=== PATIENT | male | born 1935 | race Caucasian/White ===

== ENCOUNTER 2020-12-10 01:55 | Inpatient (IN) | payer MEDICARE, MEDICAID, SELFPAY ==
[2020-12-10] VITALS (17 sets, daily range): BP systolic 96–128; BP diastolic 56–78; PULSE 70–100; RESP 12–23; TEMP 36.1–37.1; O2SAT 87–100; BMI 23.7; BMI 23.8
--- NOTE | 2020-12-10 01:51 | XR_ITS ---
PROCEDURE: XR CHEST PORTABLE CLINICAL HISTORY: soa Shortness of breath COMPARISON: No exams were available for comparison FINDINGS: Lordotic positioning. Unremarkable heart size. Small right pleural effusion is noted. There are low lung volumes with faint increased density in the left perihilar region and left lower lobe which may be related to patchy infiltrate and/or atelectatic change. Upright PA and lateral chest may confirm. IMPRESSION: Small right effusion. Patchy left perihilar and left lower lobe infiltrate. Dictated by: Anil Loja MD 12/10/2020 07:02 Anil Loja MD in [place] 12/10/2020 07:02
--- NOTE | 2020-12-10 01:54 | HMH.EDGENADL ---
ED Disposition Clinical Impression: NSTEMI (non-ST elevated myocardial infarction) Disposition: Admitted As Inpatient Condition on Discharge: Fair Referrals: PCP,No [Primary Care Provider] - - Critical Care Critical Care Time: No Attestation: On , the high probability of a clinically significant, sudden or life threatening deterioration of the following system(s) required my full and direct attention, intervention and personal management. The time I documented below is in addition to time spent performing reported procedures but includes the following listed in this critical care notation. Medical Decision Making - Medical Records Medical records reviewed: Yes: I reviewed the patient's medical records. - Shant Inquiry Pt receiving controlled substance: No Vital Signs: 12/10/20 01:49 12/10/20 02:30 12/10/20 03:00 Temperature 98.6 F Temperature Source Oral Pulse Rate [Apical] 100 H 94 H 85 Respiratory Rate 20 17 15 Blood Pressure [Right Arm] 116/72 115/62 105/58 L Blood Pressure Mean [Right Arm] 86 79 73 Blood Pressure Source [Right Arm] Automatic Cuff Automatic Cuff Automatic Cuff Blood Pressure Position [Right Arm] Supine Supine Supine 02 Sat by Pulse Oximetry 87 L 100 99 Oxygen Delivery Method Nasal Cannula BiPAP BiPAP Oxygen Flow Rate (LPM) 2 12/10/20 03:30 Temperature Temperature Source Pulse Rate [Apical] 80 Respiratory Rate 21 Blood Pressure [Right Arm] 107/75 L Blood Pressure Mean [Right Arm] 85 Blood Pressure Source [Right Arm] Automatic Cuff Blood Pressure Position [Right Arm] Supine 02 Sat by Pulse Oximetry 100 Oxygen Delivery Method BiPAP Oxygen Flow Rate (LPM) - Lab Data Lab Results 12/10/20 01:50: WBC 8.8, RBC 3.09 L, Hgb 10.2 L, Hct 30.7 L, MCV 99.5 H, MCH 33.2 H, MCHC 33.4, RDW 13.9, Plt Count 299, MPV 8.2, Neut % (Auto) 77.9, Lymph % (Auto) 13.8, [place] % (Auto) 5.2, Eos % (Auto) 2.9, Baso % (Auto) 0.3, Neut # (Auto) 6.8, Lymph # (Auto) 1.2, [place] # (Auto) 0.5, Eos # (Auto) 0.3, Baso # (Auto) 0.0 12/10/20 01:50: Sodium 135 L, Potassium 5.1, Chloride 103, Carbon Dioxide 23, Anion Gap 14.1, BUN 41 H, Creatinine 2.30 H, Estimated Creat Clear 27, Estimated GFR 27 L, Est GFR ( Amer) 33 L, Glucose 330 H, Calcium 9.2, Troponin I 0.34 H, NT-Pro-B Natriuret Pep 18136 H 12/10/20 01:50: Lactate 2.1 12/10/20 01:50: SARS-CoV-2 IgG Ab (Rapid) Negative, SARS-CoV-2 IgM Ab (Rapid) Negative 12/10/20 01:50: Procalcitonin 0.148 12/10/20 01:51: Specimen Source Left radial, O2 % 2 lpm nc. 28%, ABG pH 7.32 L, ABG pCO2 38.6, ABG pO2 53.7 L, ABG HCO3 19.6 L, ABG Total CO2 20.8 L, ABG O2 Saturation 84 L*, ABG Base Excess -6.4 L, Anil Test Patient unable 12/10/20 02:00: Chlamy pneumoniae PCR Not detected, Adenovirus (PCR) Not detected, B. pertussis DNA (PCR) Not detected, Coronavirus OC43 (PCR) Not detected, Coronavirus HKU1 (PCR) Not detected, Coronavirus 229E (PCR) Not detected, SARS-CoV-2 (PCR) Not detected, Coronavirus NL63 (PCR) Not detected, Human Metapneumovir PCR Not detected, Influenza A (H1) PCR Not detected, Influ A (H1N1/09) PCR Not detected, Influenza A (H3) PCR Not detected, Influenza Type A (PCR) Not detected, Influenza Type B (PCR) Not detected, M. pneumoniae (PCR) Not detected, Parainfluenza 1 (PCR) Not detected, Parainfluenza 2 (PCR) Not detected, Parainfluenza 3 (PCR) Not detected, Parainfluenza 4 (PCR) Not detected, RSV (PCR) Not detected, Entero/Rhino (PCR) Not detected 12/10/20 04:58: Troponin I 0.77 H Result diagrams: 12/10/20 01:50 12/10/20 01:50 Orders (Tests/Meds): ED MEDICATIONS Generic Name Dose Route Start Last Admin Trade Name Freq PRN Reason Stop Dose Admin Heparin Sodium/Dextrose 500 mls @ 20 mls/hr 12/10/20 05:45 12/10/20 05:48 Heparin 25,000 Units In D5w 500ml Premix IV 01/09/21 05:44 20 mls/hr .Q25H HEMANTH Administration 1,000 UNITS/HR Discontinued Medications Generic Name Dose Route Start Last Admin Trade Name Freq PRN Reason Stop Dos
[2020-12-10 01:55] LABS: ABG Base Excess -6.4 mmol/L (-2.4-2.3); ABG HCO3 19.6 mmhg (22.0-26.0); ABG Oxygen Saturation 84 % (90-100); ABG PCO2 38.6 mmhg (35.0-45.0); ABG PH 7.32 mmol/L (7.35-7.45); ABG PO2 53.7 mmhg (80-100); ABG TCO2 20.8 mmhg (23-27)
[2020-12-10 02:00] LABS: Allen's Test Patient Unable; Source Left Radial
--- NOTE | 2020-12-10 02:05 | PC.NURSE ---
pt placed onto bipap by respiratory
[2020-12-10 02:14] LABS: Basophils % 0.3 % (0.1-2.0); Eosinophils # 0.3 K/mm3 (0.0-0.4); Eosinophils % 2.9 % (0.1-12.0); Hematocrit 30.7 % (42.0-52.0); Hemoglobin 10.2 g/dL (14.1-18.0); Lymphocytes # 1.2 K/mm3 (0.7-4.5); Lymphocytes % 13.8 % (10-50); Mean Corpuscular HGB Conc 33.4 g/dL (31.8-35.4); Mean Corpuscular Hemoglobin 33.2 pg (27.0-31.2); Mean Corpuscular Volume 99.5 fl (80-94); Mean Platelet Volume 8.2 fl (7.4-10.4); Monocytes # 0.5 K/mm3 (0.1-1.0); Monocytes % 5.2 % (1.7-9.3); Neutrophils # 6.8 K/mm3 (1.8-7.8); Neutrophils % 77.9 % (37.0-80.0); Platelet Count 299 K/mm3 (142-424); Red Blood Count 3.09 M/mm3 (4.60-6.20); Red Cell Distribution Width 13.9 % (11.5-17.5); White Blood Count 8.8 K/mm3 (4.8-10.8)
[2020-12-10 02:15] LABS: Chloride 103 mmol/L (98-107); Potassium 5.1 mmoL/L (3.5-5.1); Sodium 135 mmol/L (136-145)
[2020-12-10 02:16] LABS: Adenovirus,PCR Not Detected (NotDetected); Bordetella Pertussis Not Detected (NotDetected); Chlamydophila Pneumoniae, PCR Not Detected (NotDetected); Coronavirus 19, PCR Not Detected (NotDetected); Coronavirus 229E Not Detected (NotDetected); Coronavirus NL63 Not Detected (NotDetected); Coronavirus OC43 Not Detected (NotDetected); Coronovirus HKU1,PCR Not Detected (NotDetected); Human Metapneumovirus Not Detected (NotDetected); Influenza A, PCR Not Detected (NotDetected); Influenza AH1, 2009 Not Detected (NotDetected); Influenza AH1, PCR Not Detected (NotDetected); Influenza AH3,PCR Not Detected (NotDetected); Influenza B, PCR Not Detected (NotDetected); Mycoplasma Pneumoniae, PCR Not Detected (NotDetected); Parainfluenza 1, PCR Not Detected (NotDetected); Parainfluenza 2, PCR Not Detected (NotDetected); Parainfluenza 3, PCR Not Detected (NotDetected); Parainfluenza 4, PCR Not Detected (NotDetected); Respiratory Syncytial Virus Not Detected (NotDetected); Rhinovirus/Enterovirus Not Detected (NotDetected)
--- NOTE | 2020-12-10 02:17 | ECG_ITS ---
APPROVED REPORT Exam: Resting ECG HR:98 bpm ECG Measurements Heart Rate 98 AXES ID 170 P 36 QRSd 98 QRS 20 QT 378 T 202 QTc 482 Conclusion Normal sinus rhythm ST & T wave abnormality, consider inferior ischemia ST & T wave abnormality, consider anterolateral ischemia Prolonged QT Abnormal ECG Electronically signed by : Isaias Conner, 12/10/2020 05:59:46
[2020-12-10 02:18] LABS: Anion Gap 14.1 mEq/L (5-15); Blood Urea Nitrogen 41 mg/dl (9-20); Calcium 9.2 mg/dl (8.4-10.2); Carbon Dioxide 23 mmol/L (22.0-30.0); Creatinine Clearance Estimated 27 mL/min (50-200); Estimated Glomerular Filt Rate 27 ml/min (>60); GFR (African American) 33 ML/MIN (>60); Glucose 330 mg/dl (74-100)
[2020-12-10 02:28] LABS: Lactic Acid 2.1 mmol/L (0.7-2.1); NT Pro Brain Natriuretic Pep. 20500 pg/mL (0-450)
[2020-12-10 02:31] LABS: Troponin I 0.34 ng/ml (0.00-0.034)
[2020-12-10 02:39] LABS: Procalcitonin 0.148 ng/mL (0.0-2.0)
[2020-12-10 02:44] LABS: Coronavirus 19 IgG Antibody Negative (Negative); Coronavirus 19 IgM Antibody Negative (Negative)
--- NOTE | 2020-12-10 02:53 | ECG_ITS ---
APPROVED REPORT Exam: Resting ECG HR:87 bpm ECG Measurements Heart Rate 87 AXES ND 126 P 2 QRSd 86 QRS 30 QT 386 T 209 QTc 464 Conclusion Sinus rhythm with fusion complexes ST & T wave abnormality, consider inferior ischemia ST & T wave abnormality, consider anterolateral ischemia Prolonged QT Abnormal ECG Electronically signed by : Isaias Conner, 12/10/2020 16:34:52
[2020-12-10 05:38] LABS: Troponin I 0.77 ng/ml (0.00-0.034)
--- NOTE | 2020-12-10 05:47 | PC.NURSE ---
speaking with Akanksha at this time.
--- NOTE | 2020-12-10 05:51 | PC.NURSE ---
speaking to in regards to admission.
--- NOTE | 2020-12-10 06:11 | PC.NURSE ---
patient up to floor via stretcher.
[2020-12-10 06:14] LABS: Reflex Lactic Add Lactic Reflex
[2020-12-10 07:21] LABS: Activated Partial Thrombo Time 21.1 seconds (23.6-34.0)
[2020-12-10 08:00] LABS: Lactic Acid Follow Up (RFLX 1) 1.3 mmol/L (0.7-2.1)
--- NOTE | 2020-12-10 08:07 | HMH.CNCARD ---
History of Present Illness Consult date: 12/10/20 Requesting physician: Kiran Crenshaw Consult reason: chest pain Chief complaint: NSTEMI Additional Medical History:: 1. Hypertension 2. Hyperlipidemia 3. History of prostatectomy 4. Questionable history of renal disease 5. Diabetes mellitus type 2 6. NSTEMI, 11/2020 A. Echo, LVEF of 30% with multiple WMA. Moderate MR. 7. CHF, 11/2020 History of present illness: Patient 85-year-old male with questionable history of diabetes presenting with dyspnea. Patient states he felt well throughout the day but then after putting his dog to sleep he began having some dyspnea that was little bit worse when he laid flat. He has never had issues like this in the past. He has had a runny nose over the past 1 to 2 weeks. No fever/chills, cough. No specific chest discomfort, leg swelling, abdominal swelling. He denies any recent sick contacts or any known exposure to coronavirus. No recent recent travel, immobilization, history of blood clots. Patient presents with hypoxia and dyspnea. On EMS arrival, patient had saturations around 75% on room air. Patient appear to be volume overloaded so placed on BiPAP, given 2 sublingual nitroglycerin, and 50 mg of IV Lasix. On arrival, patient transition to nasal cannula for a short trial and had O2 saturations between 84 and 86%. Mild tachycardia with no hypo-/hypertension. Patient mentating okay. Blood gas demonstrates a pH of 7.32 with a PCO2 of 38 and a PO2 of 53. On bedside ultrasound he does have bilateral B-lines diffusely throughout lung calero as well as bilateral pleural effusions. Patient will be placed back on BiPAP. As he did just receive 2 sublingual nitroglycerin in route and has a blood pressure around 116/80 mmHg no nitroglycerin will be given but patient will be closely monitored. Differential does include heart failure exacerbation versus valvular etiology versus infectious etiology. Lactic acid with blood cultures obtained but no antibiotics given at this time. EKG obtained upon arrival demonstrates some diffuse ST depression/inverted T waves without any acute ST elevation. No prior EKG available for comparison. Again, cardiac ischemia on the differential. Cardiac enzymes pending. Serial EKGs will be obtained in the ER to ensure no dynamic change. Aspirin 324 mg chewable given after EKG interpreted. Troponin is mildly elevated to 0.34 but basic natruretic peptide also significantly elevated to 20,000. This appears to be more consistent with heart failure exacerbation. Valvular issue cannot be ruled out. Patient received aspirin but no heparin will be administered at this time until repeat troponin to evaluate for a trend upwards obtained. Repeat EKG stable without dynamic change. Other lab work unremarkable except creatinine is 2.30. Patient does have remote history of kidney disease on review. Patient is remained stable on BiPAP. Currently hemodynamically stable resting comfortably in bed on BiPAP. Heparin bolus given with drip initiated. Second cardiac enzyme test at 0.77 which does show some trend upwards. At that time, I did reach out to on-call technical support coordinator to discuss case carefully. Agree the patient requires admission with IV diuresis and further evaluation. Patient again did receive 50 mg of IV Lasix en route and his blood pressure is about 100/60 mmHg then he has had 200 cc of urine output since his arrival. Patient will continue to gently IV diuresis but may require further IV diuretics. I did reach out to on-call hospitalist who agreed to admit this patient. Patient updated on plan and is in agreement. The above per SEB Hamlin MD. Patient relates less than 1 week history of exertional shortness of breath which worsened acutely yesterday with anterior chest discomfort that resolved with rest. He denies any previous cardiac history. He discontinued smoking about 20 years ago. EKG shows sinus rhythm with inferior a
--- NOTE | 2020-12-10 08:28 | CA_ITS ---
APPROVED REPORT EXAM: Comprehensive 2D, Doppler, and color-flow Echocardiogram Emergency Services Professional: Trang Mcmahan RVT Ht: 6 ft 0 in Wt: 175lbs BSA: 2.01 BP: 120/63 mmHg Indications: NSTEMI,SIMMONS,ELEVATED TROP,MURMUR,EX SMOKER,HTN,HLD 2D Dimensions LVOT 2.18 cm (M/F) 1.5-2.5 M-Mode Dimensions RVDd 2.52 cm (0.9-2.6) LA Diam 3.89 cm (1.9-4.0) LVDd 4.90 cm (3.5-5.7) Ao Diam 3.51 cm (2.0-3.7) LVDs 4.19 cm (3.5-5.7) IVSd 1.17 cm (0.6-1.1) PWd 1.03 cm (0.6-1.1) EF (Teich) 40.20% FS 19.70% EDV (Teich) 130.70 mL ESV (Teich) 78.10 mL LV Diastology E Decel Time 167.00 (160-240 msec) E/A Ratio 1.8 MED E' 4.30 (< 7 cm/sec) E'/MED E' Ratio 24.09 (>14) LAT E' 7.70 (<10 cm/sec) E/LAT E' Ratio 13.45 (>14) Aortic Valve LVOT Max 131.00 (70-110 cm/s) LVOT VTI 26.45 cm AoV Peak Sudheer. 127.00 (50-130 cm/s) AI PHT 618.00 ms AO Peak GR. 6.40 mmHg AO Mean GR. 4.50 (<5 mmHg) AO VTI 25.40 (18-25 cm) JEAN CLAUDE (VTI) 3.89 (2.5-4.5 cm2) Mitral Valve MV E Max Sudheer. 104.00 (40-130 cm/s) MV A Velocity 59.00 (40-130 cm/s) E/A Ratio 1.76 MV Decel. Time 167.00 (160-240 ms) MV PHT 49.00 ms Pulmonary Valve PV Peak Velocity 76.00 (50-150 cm/s) Tricuspid Valve TR P. Velocity 323.00 cm/s RAP Estimate 10.00 mmHg RVSP 51.60 mmHg Left Ventricle Left atrium is mildly enlarged, left ventricle is mildly dilated, there is severe reduced left ventricular systolic function, visually estimated ejection fraction 30%, there is marked hypokinesis involving the mid septum and anterolateral inferior and inferior basal wall. Diastolic parameters are inconclusive. Endocardial surfaces are poorly visualized. Right Ventricle Right atrium and right ventricle mildly enlarged with normal contractility. Aortic Valve Aortic valve is thickened and calcified there is no aortic stenosis, there is mild aortic insufficiency. Mitral Valve Mitral valve leaflets are minimally thickened, there is no mitral stenosis, there is moderate mitral regurgitation. Tricuspid Valve Tricuspid valve grossly normal, there is mild tricuspid regurgitation, tricuspid regurgitation jet velocity is inadequate for calculation of the right ventricular systolic pressure. Pulmonic Valve Pulmonic valve is poorly visualized. Great Vessels Aortic root is normal size. Pericardium No significant pericardial effusion noted. Conclusion 1. Mildly enlarged left atrium, dilated left ventricle, severely reduced left ventricular systolic function, visually estimated ejection fraction 30% with multiple segmental wall motion abnormality suggestive of multivessel coronary artery disease. Diastolic parameters are inconclusive. Endocardial surfaces are poorly visualized. 2. Thickened and calcified aortic valve without aortic stenosis, there is mild aortic insufficiency. 3. Moderate mitral and mild tricuspid regurgitation. 4. No significant pericardial effusion noted. Electronically signed by : Rhys Canas, 12/10/2020 11:14:25
--- NOTE | 2020-12-10 08:32 | PC.NURSE ---
Pt arrived on unit at approx 0645. ling sounds are clear.pt is sitting up in the bed with 100% nrb in place. no issues detected. pt had elevated troponin levels r/t nstemi. nad noted. will continue to mnitor.
--- NOTE | 2020-12-10 08:43 | HMH.PHAVTE ---
[facility] Pharmacy VTE Monitoring - Patient Demographics Admission date: 12/09/20 Report Date: 12/10/20 Time: 08:43 Allergies/Adverse Reactions: Patient Allergies No Known Allergies Allergy (Verified 02/03/19 11:15) Height: 1.83 m Weight: 79.577 kg Patient Problems: Current Active Problems NSTEMI (non-ST elevated myocardial infarction) (Acute) Diabetes mellitus type 2 in nonobese (Acute) CKD (chronic kidney disease) stage 4, GFR 15-29 ml/min (Acute) Cardiac murmur, unspecified (Acute) Hypoxemia (Acute) Elevated brain natriuretic peptide (BNP) level (Acute) Pulmonary infiltrate in left lung on CXR (Acute) - VTE Risk Labs: VTE Related Lab Results Hgb 10.2 g/dL (14.1-18.0) L 12/10/20 01:50 Hct 30.7 % (42.0-52.0) L 12/10/20 01:50 Plt Count 299 K/mm3 (142-424) 12/10/20 01:50 APTT 21.1 seconds (23.6-34.0) L 12/10/20 01:50 BUN 41 mg/dl (9-20) H 12/10/20 01:50 Creatinine 2.30 mg/dl (0.66-1.25) H 12/10/20 01:50 Estimated Creat Clear 27 mL/min (50-200) 12/10/20 01:50 - Prophylaxis VTE Prophylaxis Ordered?: Yes Types of VTE Prophylaxis: TEDS Knee High, Pharmacological Pharmacologic Type: Heparin
--- NOTE | 2020-12-10 08:49 | HMH.HP ---
*Admission Date: 12/09/20 *Chief complaint: chest pain *History of present illness: 85-year-old male presented to ED with dyspnea with hypoxia. Patient states he felt well throughout the day but then after putting his dog to sleep he began having some dyspnea that was little bit worse when he laid flat. On arrival to ED, patient had saturations around 75% on room air. On arrival, patient transition to nasal cannula for a short trial and had O2 saturations between 84 and 86%, was placed back on bipap. Patient admitted for further evaluation. [facility] History I have reviewed the patient's past medical history: Yes Medical History: Reports:: Diabetes Mellitus Type 2 Denies:: Cancer, Diabetes Mellitus Type 1, MRSA *Have you ever received a pneumonia vaccine?: No *Have you received a flu vaccine this season?: No Amputation: No Fractures: No - *Social History Smoking Status: Former smoker # Packs/Day (cigarettes): 1 Smoking End Date: 30 years Alcohol Intake: never *Occupational Status:: retired *Travel in the last 8 weeks: None Family Hx:: No significant family history Review of Systems - Review of Systems Review of systems:: pertinent systems reviewed and negative unless documented below - Constitutional Denies chills, Denies fatigue - Eyes Denies change in vision - ENT Denies bleeding gums - *Cardiovascular Reports shortness of breath, Reports shortness of breath with activity, Denies chest pain at rest - *Respiratory Reports shortness of breath, Reports shortness of breath with activity, Denies pain with cough - *Gastrointestinal Denies nausea, Denies vomiting - *Genitourinary Denies urinary frequency - *Musculoskeletal Denies decreased muscle mass - Integumentary/Breasts Denies rash - *Neurologic Denies dizziness - Psychiatric Denies anxiety - Endocrine Denies flushing - Hematologic/Lymphatic Denies enlarged lymph nodes Meds Home Medications Medication Instructions Recorded Confirmed Type Aspirin [Aspir 81] 81 mg PO DAILY 02/03/19 12/10/20 History glipiZIDE [Glipizide] 10 mg PO DAILY 02/03/19 12/10/20 History Ferrous Sulfate [Ferrous Sulfate 325 mg PO DAILY 12/10/20 12/10/20 History 325mg Tablet] Finasteride [Proscar 5mg Tablet] 5 mg PO DAILY 12/10/20 12/10/20 History Pantoprazole Sodium 40 mg PO DAILY 12/10/20 12/10/20 History Terazosin HCl [Hytrin 1mg capsule] 1 mg PO DAILY 12/10/20 12/10/20 History Allergies Allergy/AdvReac Type Severity Reaction Status Date / Time No Known Allergies Allergy Verified 02/03/19 11:15 Exam Vital signs and Labs for Last 24 Hours: Temp Pulse Resp BP Pulse Ox 98.5 F 71 18 120/63 94 L 12/10/20 08:00 12/10/20 08:00 12/10/20 08:00 12/10/20 08:00 12/10/20 08:00 Laboratory Results - last 24 hr 12/10/20 01:50: WBC 8.8, RBC 3.09 L, Hgb 10.2 L, Hct 30.7 L, MCV 99.5 H, MCH 33.2 H, MCHC 33.4, RDW 13.9, Plt Count 299, MPV 8.2, Neut % (Auto) 77.9, Lymph % (Auto) 13.8, [place] % (Auto) 5.2, Eos % (Auto) 2.9, Baso % (Auto) 0.3, Neut # (Auto) 6.8, Lymph # (Auto) 1.2, [place] # (Auto) 0.5, Eos # (Auto) 0.3, Baso # (Auto) 0.0 12/10/20 01:50: Sodium 135 L, Potassium 5.1, Chloride 103, Carbon Dioxide 23, Anion Gap 14.1, BUN 41 H, Creatinine 2.30 H, Estimated Creat Clear 27, Estimated GFR 27 L, Est GFR ( Amer) 33 L, Glucose 330 H, Calcium 9.2, Troponin I 0.34 H, NT-Pro-B Natriuret Pep 79435 H 12/10/20 01:50: Lactate 2.1 12/10/20 01:50: SARS-CoV-2 IgG Ab (Rapid) Negative, SARS-CoV-2 IgM Ab (Rapid) Negative 12/10/20 01:50: Procalcitonin 0.148 12/10/20 01:50: APTT 21.1 L 12/10/20 01:51: Specimen Source Left radial, O2 % 2 lpm nc. 28%, ABG pH 7.32 L, ABG pCO2 38.6, ABG pO2 53.7 L, ABG HCO3 19.6 L, ABG Total CO2 20.8 L, ABG O2 Saturation 84 L*, ABG Base Excess -6.4 L, Anil Test Patient unable 12/10/20 02:00: Chlamy pneumoniae PCR Not detected, Adenovirus (PCR) Not detected, B. pertussis DNA (PCR) Not detected, Coronavirus OC43 (PCR) Not detected, [place]
[2020-12-10 09:10] LABS: Anion Gap 12.1 mEq/L (5-15); Blood Urea Nitrogen 44 mg/dl (9-20); Calcium 9.3 mg/dl (8.4-10.2); Carbon Dioxide 25 mmol/L (22.0-30.0); Chloride 104 mmol/L (98-107); Creatinine Clearance Estimated 27 mL/min (50-200); Estimated Glomerular Filt Rate 27 ml/min (>60); GFR (African American) 33 ML/MIN (>60); Glucose 191 mg/dl (74-100); Potassium 5.1 mmoL/L (3.5-5.1); Sodium 136 mmol/L (136-145)
[2020-12-10 09:35] LABS: ABG Base Excess -2.8 mmol/L (-2.4-2.3); ABG Oxygen Saturation 92 % (90-100); ABG PCO2 30.4 mmhg (35.0-45.0); ABG PH 7.46 mmol/L (7.35-7.45); ABG PO2 63.4 mmhg (80-100)
[2020-12-10 09:38] LABS: Allen's Test ACCEPTABLE; Oxygen ROOM AIR %; Source Left Radial
--- NOTE | 2020-12-10 09:53 | HMH.PHAHEP ---
[facility] Pharmacy Heparin Dosing - Demographic Data Admission date:: 12/10/20 Date: 12/10/20 Time: 09:53 Allergies/Adverse Reactions: Allergies Allergy/AdvReac Type Severity Reaction Status Date / Time No Known Allergies Allergy Verified 02/03/19 11:15 Height: 1.83 m Weight: 79.57 kg - Indication Medication therapy:: Heparin Patient Problems: Current Active Problems NSTEMI (non-ST elevated myocardial infarction) (Acute) Diabetes mellitus type 2 in nonobese (Acute) CKD (chronic kidney disease) stage 4, GFR 15-29 ml/min (Acute) Cardiac murmur, unspecified (Acute) Hypoxemia (Acute) Elevated brain natriuretic peptide (BNP) level (Acute) Pulmonary infiltrate in left lung on CXR (Acute) Ischemic cardiomyopathy (Acute) Acute systolic CHF (congestive heart failure), NYHA class 3 (Acute) CVA?: No Bleeding problem?: No Kidney disease?: No VA?: No Desired PTT range:: 60-80 seconds - Labs Anticoagulation Lab Results:: 12/10/20 01:50 Hgb 10.2 L Hct 30.7 L Plt Count 299 - Monitoring Dose Monitor 1 Date: 12/10/20 Time: 01:50 PTT Result:: 21.1 Infusion Rate:: HEPARIN INITIATED AT 1,000 UNITS/HR Comment:: 4,000 UNIT BOLUS OF HEPARIN Dose Monitor 2 Date: 12/10/20 Time: 12:00 - Core Measures Is INR > or = 2 at discharge?: No Most Recent Labs:: Laboratory Results - last 24 hr 12/10/20 01:50: WBC 8.8, RBC 3.09 L, Hgb 10.2 L, Hct 30.7 L, MCV 99.5 H, MCH 33.2 H, MCHC 33.4, RDW 13.9, Plt Count 299, MPV 8.2, Neut % (Auto) 77.9, Lymph % (Auto) 13.8, [place] % (Auto) 5.2, Eos % (Auto) 2.9, Baso % (Auto) 0.3, Neut # (Auto) 6.8, Lymph # (Auto) 1.2, [place] # (Auto) 0.5, Eos # (Auto) 0.3, Baso # (Auto) 0.0 12/10/20 01:50: Sodium 135 L, Potassium 5.1, Chloride 103, Carbon Dioxide 23, Anion Gap 14.1, BUN 41 H, Creatinine 2.30 H, Estimated Creat Clear 27, Estimated GFR 27 L, Est GFR ( Amer) 33 L, Glucose 330 H, Calcium 9.2, Troponin I 0.34 H, NT-Pro-B Natriuret Pep 75570 H 12/10/20 01:50: Lactate 2.1 12/10/20 01:50: SARS-CoV-2 IgG Ab (Rapid) Negative, SARS-CoV-2 IgM Ab (Rapid) Negative 12/10/20 01:50: Procalcitonin 0.148 12/10/20 01:50: APTT 21.1 L 12/10/20 01:51: Specimen Source Left radial, O2 % 2 lpm nc. 28%, ABG pH 7.32 L, ABG pCO2 38.6, ABG pO2 53.7 L, ABG HCO3 19.6 L, ABG Total CO2 20.8 L, ABG O2 Saturation 84 L*, ABG Base Excess -6.4 L, Anil Test Patient unable 12/10/20 02:00: Chlamy pneumoniae PCR Not detected, Adenovirus (PCR) Not detected, B. pertussis DNA (PCR) Not detected, Coronavirus OC43 (PCR) Not detected, Coronavirus HKU1 (PCR) Not detected, Coronavirus 229E (PCR) Not detected, SARS-CoV-2 (PCR) Not detected, Coronavirus NL63 (PCR) Not detected, Human Metapneumovir PCR Not detected, Influenza A (H1) PCR Not detected, Influ A (H1N1/09) PCR Not detected, Influenza A (H3) PCR Not detected, Influenza Type A (PCR) Not detected, Influenza Type B (PCR) Not detected, M. pneumoniae (PCR) Not detected, Parainfluenza 1 (PCR) Not detected, Parainfluenza 2 (PCR) Not detected, Parainfluenza 3 (PCR) Not detected, Parainfluenza 4 (PCR) Not detected, RSV (PCR) Not detected, Entero/Rhino (PCR) Not detected 12/10/20 04:58: Troponin I 0.77 H 12/10/20 07:40: Lactate 1.3 12/10/20 07:40: Sodium 136, Potassium 5.1, Chloride 104, Carbon Dioxide 25, Anion Gap 12.1, BUN 44 H, Creatinine 2.30 H, Estimated Creat Clear 27, Estimated GFR 27 L, Est GFR ( Amer) 33 L, Glucose 191 H D, Calcium 9.3 12/10/20 08:38: Specimen Source Left radial, O2 % Room air, ABG pH 7.46 H, ABG pCO2 30.4 L, ABG pO2 63.4 L, ABG HCO3 21.0 L, ABG Total CO2 22.0 L, ABG O2 Saturation 92, ABG Base Excess -2.8 L, Anil Test Acceptable If INR was < than 2.0 why was therapy stopped?: STARTING ASPIRIN AND BRILINTA Were Heparin and Warfarin started on the same day?: No If not, why?: STARTING ASPIRIN AND BRILINTA
[2020-12-10 12:34] LABS: Activated Partial Thrombo Time 43.2 seconds (23.6-34.0)
--- NOTE | 2020-12-10 16:06 | PC.NURSE ---
PT IS RESTING IN BED. NO COMPLAINTS OF CHEST PAIN. PT STATES HE ONLY FEELS SOA WHEN GETTING UP TO AMBULATE TO THE BATHROOM. O2 SATURATION HAS MAINTAINED 92-95% ROOM AIR. PT IS A STAND BY ASSIST TO AMBULATE TO THE BATHROOM. EATING AND DRINKING FAIR. VSS. LUNG SOUNDS CLEAR. ABDOMEN SOFT/NON TENDER WITH ACTIVE BOWEL SOUNDS. WILL CONTINUE TO MONITOR.
[2020-12-11] VITALS (21 sets, daily range): BP systolic 90–110; BP diastolic 42–68; PULSE 65–99; RESP 14–22; TEMP 36.5–36.8; O2SAT 90–100; BMI 22.8
--- NOTE | 2020-12-11 | IR_ITS ---
APPROVED REPORT Patient Location: Inpatient Clothing Supervisor: MARLA Escalante RT (R) PROCEDURES Selective coronary angiogram Drug-eluting stent deployment to the mid and distal dominant right coronary artery Drug-eluting stent deployment to the proximal LAD Drug-eluting stent deployment to the ostial left main artery INDICATION Ischemic cardiomyopathy ejection fraction 20%, Acute non-ST elevation myocardial infarction, Flash pulmonary edema Informed consent was obtained prior to the procedure. COMPLICATIONS none Estimated Blood Loss: less than 10 mls TECHNIQUE One percent lidocaine used to anesthetize the right anterior aspect of the wrist. The right radial artery was accessed via the Seldinger technique. A 6 German sheath was placed in the right radial artery. 2.5 mg of verapamil, 800 mcg of nitroglycerin, 1mg Lidocaine and 5000 U Heparin were given through the arterial sheath. A long destination sheath was advanced into the brachial artery due to tortuosity in the radial artery. A 6 German Poppa catheter was used to intubate the right coronary artery and perform angiography. With an ACT of 199 4000 units of heparin was administered intravenously. Choice PT wire was placed beyond the subtotal critical stenosis and a 2.5 x 15 mm balloon was used to predilate the stenosis. Following this a 3 mm x 38 mm resolute Denver stent was deployed at 20 rashaad reducing the critical stenosis to 0%. An additional 3 mm x 15 mm resolute Denver stent was then deployed at 18 rashaad reducing that severe stenosis to 0%. The balloon was brought back in the 38 mm stent and deployed at 24 rashaad in order to post dilate. PAULINO II flow was present at the beginning of the procedure with PAULINO-3 flow at the end of the procedure. After achieving excellent angiographic results the catheter was then placed into the left main artery. Angiography was performed and the Choice PT wire was then placed into the LAD. A 2.5 mm balloon was used to predilate the stenosis followed by a 3 mm x 15 mm resolute elmer stent was then deployed at 16 rashaad reducing the critical stenosis to 0%. An additional 4 mm x 8 mm resolute Denver stent was then placed in the ostial left main artery and deployed at 24 rashaad reducing the severe stenosis to 0%. The LAD started with PAULINO II flow and with PAULINO-3 flow. The left main artery started with PAULINO-3 and ended with PAULINO-3 flow. At the end of the procedure the apparatus was removed the sheath was removed good hemostasis was achieved using TR banding patient was transferred to the postop holding in stable condition ANGIOGRAPHIC RESULTS The left main artery Has an ostial eccentric greater than 50% stenosis The left anterior descending artery Has a critical concentric 90% proximal stenosis followed by mid vessel 30% stenoses The circumflex artery Is a nondominant vessel with mild 10 to 20% stenosis in the proximal to mid segment. The distal or terminal obtuse marginal artery approximately 2 mm in diameter and subtotally occluded proximally supplying what appears to be a small distal obtuse marginal artery The right coronary artery Is a large dominant vessel and has proximal 50% followed by a 99% mid vessel stenosis followed by a distal 80% stenosis immediately proximal to the posterior descending artery The WALDEN ventriculogram reveals Not performed The left ventricular end-diastolic pressure Not measured IMPRESSION Critical coronary artery disease as described above almost certainly accounting for the severe left ventricular dysfunction and dilated ventricle as seen by echo Successful stenting of the proximal to mid dominant right coronary artery critical disease reduced to 0% withdrawn drug-eluting stent with succes
--- NOTE | 2020-12-11 01:45 | PC.NURSE ---
At approximately 0145, pt called out for help. Upon examination, pt was found to be extremely SOA and diaphoretic. Crackles, rhonchi and wheezes were heard throughout lung calero. O2 saturation 62% on 2 LPM via NC. This nurse applied a non-rebreather and paged Dr. Tripp. Received orders for 40 MG IV Lasix X1 and Duonebs TID PRN. See further notes per Primary RN.
--- NOTE | 2020-12-11 01:59 | PC.NURSE ---
resp notified of duoneb treatment
--- NOTE | 2020-12-11 02:09 | ECG_ITS ---
APPROVED REPORT Exam: Resting ECG HR:112 bpm ECG Measurements Heart Rate 112 AXES NM 118 P -8 QRSd 96 QRS -1 QT 340 T 168 QTc 464 Conclusion Sinus tachycardia with premature supraventricular complexes with occasional premature ventricular complexes and fusion complexes ST & T wave abnormality, consider lateral ischemia Abnormal ECG Electronically signed by : Isaias Conner, 12/13/2020 19:43:23
[2020-12-11 02:22] LABS: ABG Base Excess -7.4 mmol/L (-2.4-2.3); ABG HCO3 19.7 mmhg (22.0-26.0); ABG Oxygen Saturation 70 % (90-100); ABG PH 7.26 mmol/L (7.35-7.45); ABG TCO2 21.1 mmhg (23-27)
[2020-12-11 02:24] LABS: Allen's Test Acceptable; Oxygen 2L %; Source Right Radial
[2020-12-11 02:25] LABS: ABG PO2 43.3 mmhg (80-100)
--- NOTE | 2020-12-11 02:35 | XR_ITS ---
PROCEDURE: XR CHEST PORTABLE Referring Doctor: Grant Tripp Patient Age:85Y CLINICAL HISTORY: diaphoresis, shortness of air NSTEMI COMPARISON: CR XR CHEST PORTABLE from 12/10/2020 FINDINGS: Today's AP portable semi-erect CXR is compared to yesterday's P CXRp Progressing, worsening bilateral perihilar infiltrates. Of this central perihilar infiltrate pattern a fairly rapid progression of findings does suggests CHF/pulmonary edema. But there is slight accentuation pulmonary vascularity throughout but the heart is only normal to upper normal size.;development of bilateral pneumonia also considered as a contributing component a to the overall picture particularly with the infiltrate right lung base.-Diffuse additional infiltrate is seen throughout the right lung base also noted. There is also patchy infiltrate developing at the left upper lobe behind the 1st and 2nd rib. These peripheral patchy infiltrates would benefit from correlation withcovid testing as well. Slight blunting right CP angle suggesting small right pleural effusion; chest wall unremarkable IMPRESSION: . Significant progression of findings and worsening bilateral infiltrates since yesterday CXR . Mainly central/perihilar infiltrates distribution suggestive of CHF/pulmonary edema; although could not exclude associated pneumonitis/pneumonia particularly with additional diffuse infiltrate throughout the right lung base. . Small right pleural effusion associated Dictated by: Eliceo Nicholson MD 12/11/2020 08:29 Eliceo Nicholson MD in [place] 12/11/2020 08:29
--- NOTE | 2020-12-11 03:44 | PC.NURSE ---
at approx 0200 pt began to call out for help (per RN watching pt at that time, who had assessed the pt prior to my arrival). upon entering the room pt was noted to be tachypneic and have labored breathing. pt was diaphoretic and noted to be on 2lpm/nc sat noted to be 62%. Pt had easily audible crackles noted. administered 40mg IV LAsix (order received by A Carmita AVALOS) and given Duoneb (order by Imelda Vizcarra). ABG obtained, pH 7.26 pCO2 45.0 pO2 43.3 HCO3 21.1 O2 70 Pt placed on 100% NRB r/t low o2 sats. Dr Tripp notified of critical results at 0227. per MD obtain chest xray and serial troponins.
[2020-12-11 03:50] LABS: Troponin I 0.55 ng/ml (0.00-0.034)
--- NOTE | 2020-12-11 04:07 | PC.NURSE ---
paged dr campos r/t trop 0.55. stat read on chest xray noted to be findings concerning for worsening CHF/pulmonary edema versus bilateral pneumonitis . vs given to .pt has had 200ml UOP since lasix admin. states to notify Dr Vale
--- NOTE | 2020-12-11 04:34 | PC.NURSE ---
Late Entry:Care of pt transferred to Desire Vizcarra RN and Perla Jackson RN while this RN was away/unavailable [phone]
[2020-12-11 06:39] LABS: Basophils % 0.1 % (0.1-2.0); Eosinophils # 0.1 K/mm3 (0.0-0.4); Eosinophils % 0.4 % (0.1-12.0); Hematocrit 34.6 % (42.0-52.0); Hemoglobin 11.1 g/dL (14.1-18.0); Lymphocytes # 0.5 K/mm3 (0.7-4.5); Lymphocytes % 4.1 % (10-50); Mean Corpuscular HGB Conc 32.2 g/dL (31.8-35.4); Mean Corpuscular Hemoglobin 32.4 pg (27.0-31.2); Mean Corpuscular Volume 100.7 fl (80-94); Mean Platelet Volume 7.4 fl (7.4-10.4); Monocytes # 0.8 K/mm3 (0.1-1.0); Monocytes % 6.6 % (1.7-9.3); Neutrophils # 11.2 K/mm3 (1.8-7.8); Neutrophils % 88.7 % (37.0-80.0); Platelet Count 257 K/mm3 (142-424); Red Blood Count 3.43 M/mm3 (4.60-6.20); White Blood Count 12.6 K/mm3 (4.8-10.8)
[2020-12-11 06:52] LABS: MANUAL DIFFERENTIAL MANUAL DIFFERENTIAL (MANUAL DIFF)
[2020-12-11 07:21] LABS: Anion Gap 14.6 mEq/L (5-15); Blood Urea Nitrogen 47 mg/dl (9-20); Calcium 9.3 mg/dl (8.4-10.2); Carbon Dioxide 27 mmol/L (22.0-30.0); Chloride 100 mmol/L (98-107); Creatinine Clearance Estimated 25 mL/min (50-200); Estimated Glomerular Filt Rate 26 ml/min (>60); GFR (African American) 31 ML/MIN (>60); Glucose 301 mg/dl (74-100); Potassium 4.6 mmoL/L (3.5-5.1); Sodium 137 mmol/L (136-145)
[2020-12-11 07:37] LABS: Troponin I 0.94 ng/ml (0.00-0.034)
--- NOTE | 2020-12-11 07:57 | PC.NURSE ---
Addendum entered by Yessenia Harding RN 12/11/20 08:12: also notified of troponin of 0.55 Original Note: notified dr hutson of pt condition changes and chest xray results. beeped at 0615 and 0630. call returned at 0635. to take pt to medical laboratory assistant about 1000. supervisor prepress notified.
--- NOTE | 2020-12-11 08:02 | PC.NURSE ---
Called and reported to Dr. Tripp of critical troponin 0.94 @ 0751. NNO Plans for heart cath today. Dr. Tripp to see pt as well.
[2020-12-11 09:16] LABS: Lymphocytes % 3 % (10-50); Monocytes % 8 % (2-9); Neutrophils % 89 % (42-76); Platelet Estimate Normal; RBC Morphology Normal; Total Cells Counted 100
--- NOTE | 2020-12-11 09:26 | PC.NURSE ---
0640 WAS INFORMED BY REMY BUNDY RN THAT THIS PT IS GOING TO HAVE HEART CATH AT 1000 THIS AM AND TO NOTIFY [facility] [facility] FLOORPERSON TEAM. 0715 DID NOTIFY [employer] FLOOR[employer]ERSON TEAM OF THIS .THOSE NOTIFIED CHAPO BRODERICK,CLAUDY AGRAWAL,SHIRA KO,ISABELLA SPENCE.ALSO NOTIFIED CURRENT PERSON IN RADIOLOGY TO WARM UP THE FLURO MACHINE FOR THE HEART CATH AT 1000.
[2020-12-11 09:50] LABS: Troponin I 1.56 ng/ml (0.00-0.034)
--- NOTE | 2020-12-11 09:58 | HMH.ACPN2 ---
Internal Medicine - PN: Subj *Date: 12/11/20 *Time: 09:59 Interval history: doing better this am - going to [facility] laborer - labs reviewed Exam Vital signs and Labs for Last 24 Hours: Temp Pulse Resp BP Pulse Ox 98.1 F 82 19 102/57 L 100 12/11/20 08:00 12/11/20 08:00 12/11/20 08:00 12/11/20 08:00 12/11/20 08:00 Laboratory Results - last 24 hr 12/10/20 12:08: APTT 43.2 H D 12/11/20 02:19: Specimen Source Right radial, O2 % 2l, ABG pH 7.26 L, ABG pCO2 45.0, ABG pO2 43.3 L, ABG HCO3 19.7 L, ABG Total CO2 21.1 L, ABG O2 Saturation 70 L*, ABG Base Excess -7.4 L, Anil Test Acceptable 12/11/20 03:05: Troponin I 0.55 H 12/11/20 06:10: WBC 12.6 H D, RBC 3.43 L, Hgb 11.1 L, Hct 34.6 L, MCV 100.7 H, MCH 32.4 H, MCHC 32.2, RDW 14.0, Plt Count 257, MPV 7.4, Neut % (Auto) 88.7 H, Lymph % (Auto) 4.1 L, [place] % (Auto) 6.6, Eos % (Auto) 0.4, Baso % (Auto) 0.1, Neut # (Auto) 11.2 H, Lymph # (Auto) 0.5 L, [place] # (Auto) 0.8, Eos # (Auto) 0.1, Baso # (Auto) 0.0, Total Counted 100, Neutrophils % (Manual) 89 H, Lymphocytes % (Manual) 3 L, Monocytes % (Manual) 8, Platelet Estimate Normal, RBC Morphology Normal 12/11/20 06:10: Sodium 137, Potassium 4.6, Chloride 100, Carbon Dioxide 27, Anion Gap 14.6, BUN 47 H, Creatinine 2.40 H, Estimated Creat Clear 25, Estimated GFR 26 L, Est GFR ( Amer) 31 L, Glucose 301 H D, Calcium 9.3, Troponin I 0.94 H 12/11/20 09:05: Troponin I 1.56 H I & O for Last 24 hours: Intake & Output 12/08/20 12/09/20 12/10/20 12/11/20 11:59 11:59 11:59 11:59 Intake Total 100 / 100 240 / 240 Output Total 750 / 750 1000 / 1000 Balance -650 / -650 -760 / -760 Weight 175 lb 6.749 oz 168 lb 4 oz - Constitutional no acute distress - *Routine HEENT Exam Head: Present: normocephalic Eye: Present: EOMI, PERRL ENT: Present: mucous membranes dry - *Routine Neck Exam Absent: JVD - *Routine Respiratory Exam Present: decreased breath sounds - *Routine Cardiovascular Exam Present: RRR, murmur, S4 - *Routine Abdominal Exam Present: soft - *Routine Extremities Exam Absent: calf tenderness - *Routine Skin Exam Present: intact - *Routine Neurological Exam Present: alert, oriented X3, CN II-XII intact - Routine Psychiatric Exam Present: normal affect Assessment and Plan (1) NSTEMI (non-ST elevated myocardial infarction) Status: Acute Category: Medical Code(s): I21.4 - Non-ST elevation (NSTEMI) myocardial infarction (2) Diabetes mellitus type 2 in nonobese Status: Acute Category: Medical Code(s): E11.9 - Type 2 diabetes mellitus without complications (3) CKD (chronic kidney disease) stage 4, GFR 15-29 ml/min Status: Acute Category: Medical Code(s): N18.4 - Chronic kidney disease, stage 4 (severe) (4) Cardiac murmur, unspecified Status: Acute Category: Medical Code(s): R01.1 - Cardiac murmur, unspecified (5) Hypoxemia Status: Acute Category: Medical Code(s): R09.02 - Hypoxemia (6) Elevated brain natriuretic peptide (BNP) level Status: Acute Category: Medical Code(s): R79.89 - Other specified abnormal findings of blood chemistry (7) Pulmonary infiltrate in left lung on CXR Status: Acute Category: Medical Code(s): R91.8 - Other nonspecific abnormal finding of lung field (8) Ischemic cardiomyopathy Status: Acute Category: Medical Code(s): I25.5 - Ischemic cardiomyopathy (9) Acute systolic CHF (congestive heart failure), NYHA class 3 Status: Acute Category: Medical Code(s): I50.21 - Acute systolic (congestive) heart failure
--- NOTE | 2020-12-11 11:00 | PC.NURSE ---
Pt to [facility] laborer @ 4207.Made Dr. campos aware of troponin of 1.56 @ 1019, he stated he had seen that.
[2020-12-11 11:20] LABS: CATHL Activated Clotting Time 262 SEC (74-125)
[2020-12-11 11:21] LABS: CATHL Activated Clotting Time 199 SEC (74-125)
[2020-12-11 13:07] LABS: Troponin I 2.12 ng/ml (0.00-0.034)
--- NOTE | 2020-12-11 15:34 | PC.NURSE ---
Called and made Dr. Tripp aware of troponin of 2.12. NNO
--- NOTE | 2020-12-11 20:28 | PC.NURSE ---
Pt did have large bruised area in LISA post heart cath and hard area in center although soft to touch medially. Pt also had sm area above cath site that was tender and slightly palpable. Did call and make Dr. Vale aware and he stated he was ok with these findings and just to cont to mx pt. Pt did c/o of some pain when band was on wrist, but denies pain at this time. Dr. Vale did order prn percocet 5 mg per jan. Pt hasn't required any thus far. Intermittent wheezes this shift. Sinus on tele. CB in reach. BS x4, alert and oriented x 4. VSS. Dsg to R wrist cath site is cdi and pulse 1 plus. t is now on 4 L NC and 95% and denies soa.
[2020-12-12] VITALS (10 sets, daily range): BP systolic 97–109; BP diastolic 42–62; PULSE 50–80; RESP 16–20; TEMP 36.4–36.9; O2SAT 94–100
--- NOTE | 2020-12-12 04:52 | PC.NURSE ---
no acute changes. hematoma to right upper arm is present. cath site to right radial has dressing in place with no bleeding noted. pt currently on 3LNC. telemetry in place reading NSR w/ inverted T waves and PVC's. no complaints of pain. pt has had several small pasty bowel movements this shift. call light in reach. will continue to monitor.
--- NOTE | 2020-12-12 05:06 | PC.NURSE ---
couldnt weigh patiet due to bed malfunction.ryan
--- NOTE | 2020-12-12 06:51 | PC.NURSE ---
0545 hematoma noted to have increased in size. md notified. bp cuff applied for 20 minutes. pt tolerated well. boundaries marked. continuing monitoring
[2020-12-12 07:48] LABS: Basophils % 0.3 % (0.1-2.0); Eosinophils # 0.4 K/mm3 (0.0-0.4); Eosinophils % 4.4 % (0.1-12.0); Hematocrit 29.4 % (42.0-52.0); Hemoglobin 10.2 g/dL (14.1-18.0); Lymphocytes # 1.9 K/mm3 (0.7-4.5); Lymphocytes % 20.1 % (10-50); Mean Corpuscular HGB Conc 34.6 g/dL (31.8-35.4); Mean Corpuscular Hemoglobin 33.6 pg (27.0-31.2); Mean Corpuscular Volume 97.1 fl (80-94); Mean Platelet Volume 8.8 fl (7.4-10.4); Monocytes # 0.4 K/mm3 (0.1-1.0); Monocytes % 4.7 % (1.7-9.3); Neutrophils # 6.6 K/mm3 (1.8-7.8); Neutrophils % 70.4 % (37.0-80.0); Platelet Count 276 K/mm3 (142-424); Red Blood Count 3.02 M/mm3 (4.60-6.20); Red Cell Distribution Width 14.6 % (11.5-17.5); White Blood Count 9.3 K/mm3 (4.8-10.8)
[2020-12-12 08:01] LABS: Anion Gap 13.2 mEq/L (5-15); Blood Urea Nitrogen 50 mg/dl (9-20); Calcium 8.9 mg/dl (8.4-10.2); Carbon Dioxide 29 mmol/L (22.0-30.0); Chloride 101 mmol/L (98-107); Creatinine Clearance Estimated 24 mL/min (50-200); Estimated Glomerular Filt Rate 25 ml/min (>60); GFR (African American) 30 ML/MIN (>60); Glucose 179 mg/dl (74-100); Potassium 4.2 mmoL/L (3.5-5.1); Sodium 139 mmol/L (136-145)
--- NOTE | 2020-12-12 09:44 | HMH.ACPN2 ---
Internal Medicine - PN: Subj *Date: 12/13/20 *Time: 07:07 Interval history: doing better after heart cath - no c/o Exam Vital signs and Labs for Last 24 Hours: Temp Pulse Resp BP Pulse Ox 97.7 F 72 18 103/54 L 100 12/12/20 07:42 12/12/20 07:42 12/12/20 07:42 12/12/20 07:42 12/12/20 07:56 Laboratory Results - last 24 hr 12/11/20 09:05: Troponin I 1.56 H 12/11/20 11:34: Activated Clotting Time 199 H* 12/11/20 11:50: Activated Clotting Time 262 H* D 12/11/20 12:20: Troponin I 2.12 H 12/12/20 07:30: WBC 9.3 D, RBC 3.02 L, Hgb 10.2 L, Hct 29.4 L, MCV 97.1 H, MCH 33.6 H, MCHC 34.6, RDW 14.6, Plt Count 276, MPV 8.8, Neut % (Auto) 70.4, Lymph % (Auto) 20.1, [place] % (Auto) 4.7, Eos % (Auto) 4.4, Baso % (Auto) 0.3, Neut # (Auto) 6.6, Lymph # (Auto) 1.9, [place] # (Auto) 0.4, Eos # (Auto) 0.4, Baso # (Auto) 0.0 12/12/20 07:30: Sodium 139, Potassium 4.2, Chloride 101, Carbon Dioxide 29, Anion Gap 13.2, BUN 50 H, Creatinine 2.50 H, Estimated Creat Clear 24, Estimated GFR 25 L, Est GFR ( Amer) 30 L, Glucose 179 H, Calcium 8.9 I & O for Last 24 hours: Intake & Output 12/09/20 12/10/20 12/11/20 12/12/20 11:59 11:59 11:59 11:59 Intake Total 100 / 100 240 / 240 600 / 600 Output Total 750 / 750 1000 / 1000 800 / 800 Balance -650 / -650 -760 / -760 -200 / -200 Weight 175 lb 6.749 oz 168 lb 4 oz Microbiology Reports for the Last 24 Hours: Microbiology 12/10/20 07:40 Blood Blood Culture - Preliminary NO GROWTH AFTER 48 HOURS 12/10/20 01:50 Blood Blood Culture - Preliminary NO GROWTH AFTER 48 HOURS - Constitutional no acute distress - *Routine HEENT Exam Head: Present: normocephalic Eye: Present: EOMI, PERRL ENT: Present: mucous membranes dry - *Routine Respiratory Exam Present: decreased breath sounds - *Routine Cardiovascular Exam Present: RRR, murmur - *Routine Abdominal Exam Present: soft - *Routine Extremities Exam Absent: calf tenderness - *Routine Skin Exam Present: intact - *Routine Neurological Exam Present: alert, CN II-XII intact - Routine Psychiatric Exam Present: normal affect Assessment and Plan (1) NSTEMI (non-ST elevated myocardial infarction) Status: Acute Category: Medical Code(s): I21.4 - Non-ST elevation (NSTEMI) myocardial infarction (2) Diabetes mellitus type 2 in nonobese Status: Acute Category: Medical Code(s): E11.9 - Type 2 diabetes mellitus without complications (3) CKD (chronic kidney disease) stage 4, GFR 15-29 ml/min Status: Acute Category: Medical Code(s): N18.4 - Chronic kidney disease, stage 4 (severe) (4) Cardiac murmur, unspecified Status: Acute Category: Medical Code(s): R01.1 - Cardiac murmur, unspecified (5) Hypoxemia Status: Acute Category: Medical Code(s): R09.02 - Hypoxemia (6) Elevated brain natriuretic peptide (BNP) level Status: Acute Category: Medical Code(s): R79.89 - Other specified abnormal findings of blood chemistry (7) Pulmonary infiltrate in left lung on CXR Status: Acute Category: Medical Code(s): R91.8 - Other nonspecific abnormal finding of lung field (8) Ischemic cardiomyopathy Status: Acute Category: Medical Code(s): I25.5 - Ischemic cardiomyopathy (9) Acute systolic CHF (congestive heart failure), NYHA class 3 Status: Acute Category: Medical Code(s): I50.21 - Acute systolic (congestive) heart failure
--- NOTE | 2020-12-12 19:22 | PC.NURSE ---
Pt is now on RA and tolerating well. Lungs cta, bs x 4. BM this shift. Has ambulated to bathroom with x 1 assist. NAD. VSS. No changes in R arm, Dr. Vale did call to check on pt and gave NNO. Pt does have echo and renal duplex ordered for tomorrow. Continues to be sinus rhythm on tele.
[2020-12-13] VITALS (14 sets, daily range): BP systolic 104–177; BP diastolic 41–85; PULSE 46–80; RESP 14–21; TEMP 36.4–37; O2SAT 92–100; BMI 22.7
--- NOTE | 2020-12-13 04:25 | PC.NURSE ---
NO ACUTE CHANGES SINCE EARLIER SHIFT ASSESSMENT. PT A&O X 4. PT HAS SLEPT FOR SHORT INTERVALS THIS SHIFT. PT DID HAVE ONE EPISODE OF CONFUSION, TOOK HEART MONITOR OFF AND O2 SENSOR OFF. REAPPLIED AND PT EASILY REORIENTED. HAS RESTED WELL SINCE. VITAL SIGNS STABLE, PT DENIES PAIN OR SOA. HEMATOMA TO RIGHT ARM, MARKED AND UNCHANGED. CALL LIGHT WITHIN REACH. WILL CONTINUE TO MONITOR
[2020-12-13 05:59] LABS: Basophils % 0.3 % (0.1-2.0); Eosinophils # 0.2 K/mm3 (0.0-0.4); Eosinophils % 2.9 % (0.1-12.0); Lymphocytes % 14.8 % (10-50); Mean Corpuscular HGB Conc 33.5 g/dL (31.8-35.4); Mean Corpuscular Hemoglobin 32.3 pg (27.0-31.2); Mean Corpuscular Volume 96.2 fl (80-94); Mean Platelet Volume 7.8 fl (7.4-10.4); Monocytes # 0.3 K/mm3 (0.1-1.0); Neutrophils # 5.3 K/mm3 (1.8-7.8); Platelet Count 271 K/mm3 (142-424); Red Blood Count 2.98 M/mm3 (4.60-6.20); Red Cell Distribution Width 14.3 % (11.5-17.5); White Blood Count 6.9 K/mm3 (4.8-10.8)
[2020-12-13 06:02] LABS: Hematocrit 28.7 % (42.0-52.0); Hemoglobin 9.6 g/dL (14.1-18.0)
[2020-12-13 06:05] LABS: Anion Gap 11.2 mEq/L (5-15); Blood Urea Nitrogen 51 mg/dl (9-20); Calcium 8.8 mg/dl (8.4-10.2); Carbon Dioxide 27 mmol/L (22.0-30.0); Chloride 102 mmol/L (98-107); Creatinine Clearance Estimated 26 mL/min (50-200); Estimated Glomerular Filt Rate 27 ml/min (>60); GFR (African American) 33 ML/MIN (>60); Glucose 194 mg/dl (74-100); Potassium 4.2 mmoL/L (3.5-5.1); Sodium 136 mmol/L (136-145)
--- NOTE | 2020-12-13 07:00 | PC.NURSE ---
Report received from YeimiRN
--- NOTE | 2020-12-13 08:00 | CA_ITS ---
APPROVED REPORT EXAM: Limited 2D Echocardiogram Chief Financial Officer: Trang Mcmahan RVT Ht: 6 ft 0 in Wt: 168lbs BSA: 1.98 BP: 110/70 mmHg Indications: NSTEMI,EF CHECK FOR LIFEVEST,STENTS,SMOKER,MURMUR,HTN,HLD 2D Dimensions IVSd 1.03 cm M: 0.6-1.2 LVEF (Visual) 32.30 % PWd 1.22 cm M: 0.6 - 1.2 LVDd 4.42 cm M: 4.2 - 5.9 LVDs 3.75 cm M: 2.5 - 4.0 M-Mode Dimensions LA Diam 3.23 cm (1.9-4.0) Ao Diam 4.00 cm (2.0-3.7) Left Ventricle Left atrium is moderately enlarged, left ventricle is normal size, mild concentric left ventricular hypertrophy, severe reduced left ventricular systolic function, visually estimated ejection fraction 30%, there is marked hypokinesis involving the intraventricular septum, inferior and apical wall. Diastolic parameters are inconclusive. Right Ventricle Right atrium and right ventricle are mildly enlarged with normal contractility. Aortic Valve Aortic valve is thickened and calcified, Doppler is not indicated for aortic stenosis, there is no aortic insufficiency. Mitral Valve Mitral valve is minimally thickened, there is mild mitral regurgitation. Tricuspid Valve Tricuspid valve is grossly normal, there is mild tricuspid regurgitation, tricuspid regurgitation jet velocity is inadequate for calculation of the right ventricular systolic pressure. Pulmonic Valve Pulmonic valve is poorly visualized. Great Vessels Aortic root is normal size. Pericardium No significant pericardial effusion noted. Conclusion 1. Biatrial enlargement, normal left ventricular size, mild concentric left ventricular hypertrophy, visually estimated ejection fraction 30% with multiple segmental wall motion abnormality described above, diastolic parameters are inconclusive. 2. Thickened and calcified aortic valve without significant aortic stenosis or aortic insufficiency. 3. Mild mitral and tricuspid regurgitation. 4. No significant pericardial effusion noted. Electronically signed by : Rhys Canas, 12/13/2020 10:46:01
--- NOTE | 2020-12-13 08:00 | CA_ITS ---
APPROVED REPORT Bmet: Trang Mcmahan RVT Study Quality: Good Indications: Uncontrolled HTN Risk Factors Hypertension Hyperlipidemia Smoking Renal Artery Doppler Origin (R) 130.2/ cm/sec Proximal (R) 130.2/ cm/sec Mid (R) 153.8/ cm/sec Distal (R) 64.5/ cm/sec Renal Aorta Ratio (R) 1.67 Segmental A. (R) 29.6/5.3 cm/sec RI: 0.82 Segmental A. Sup (R) 29.6/5.3 cm/sec Segmental A. Mid (R) 29.0/6.8 cm/sec Segmental A. Inf (R) 23.8/4.0 cm/sec Origin (L) 129.1/ cm/sec Proximal (L) 114.5/ cm/sec Mid (L) 134.7/ cm/sec Distal (L) 105.5/ cm/sec Renal Aorta Ratio (L) 1.46 Segmental A. (L) 29.8/4.9 cm/sec RI: 0.83 Segmental A. Sup (L) 29.8/4.9 cm/sec Segmental A. Mid (L) 16.0/5.5 cm/sec Segmental A. Inf (L) 16.0/4.2 cm/sec Renal Measurements Kidney Size (R) 10.4x5.8 cm Cortical Thickness (R) 1.3 cm Kidney Size (L) 11.0x5.5 cm Cortical Thickness (L) 1.1 cm Findings Study suggests no evidence of stenosis of the bilateral renal arteries. 1.5 X 1.4cm cyst of thge lower pole of the left kidney. Gallstone seen gallbladder. Right pleural effusion. Conclusion Study suggests no evidence of stenosis of the bilateral renal arteries. 1.5 X 1.4cm cyst of thge lower pole of the left kidney. Gallstone seen gallbladder. Right pleural effusion Electronically signed by : Anil Loja MD 12/13/2020 17:46:28
--- NOTE | 2020-12-13 10:04 | SW/DCPLANNER ---
Addendum entered by [facility] 12/17/20 13:24: Family has now stated to me they will transport this patient from [facility] to [facility]. Dona Maciel and patients nurse (Jaimie) is aware of plan. Addendum entered by [facility] 12/17/20 12:57: Ambulance is refusing to transport this patient due being able to sit up in chair. I have contacted family and sister stated that she will try to make contact for someone to transport due to her not driving. I will continue to follow up with sister. Nurse (Jaimie) will see if [facility] can transport. I will also continue to update Dona Maciel with [facility]. Addendum entered by [facility] 12/17/20 11:56: Family has requested that patient transport via ambulance and understand that he could get charged for ambulance transportation due to being able to sit up in chair. Addendum entered by [facility] 12/17/20 10:08: I have notified Dona Maciel with [facility] that this patient will discharge today. Discharge summary has been faxed. Dr Crenshaw will accept this patient at [facility]. Patient will discharge pending COVID swab. Addendum entered by [facility] 12/15/20 11:29: This patient has been accepted to [facility] per Dona Maciel under care of Dr Crenshaw. Patient and sister is agreeable with plan. I will update MD regarding plan and get a discharge date to fill in patient, sister and Dona Maciel. Addendum entered by [facility] 12/15/20 10:08: Since setback patient is agreeable to placement. I have faxed patient information to [facility]. I have attempted to contact patients sister regarding plan: no answer VM left at this time. Addendum entered by [facility] 12/13/20 13:39: PT has stated this patient can discharge home with home health service. I called and spoke with sister and she agreed with this plan. I informed patients sister that family would need to check on him daily. I will follow up with sister if patient is medically stable for discharge tomorrow morning. Sister stated that she will have to find transportation home for this patient when he is ready. Addendum entered by [facility] 12/13/20 10:20: Sister has called back and stated that patient does live at home alone and could use assistance. I did explain that PT will evaluate today and could recommend placement vs home health. Sister seems to think home health would be appropriate for this patient. I will follow back up with sister and patient once patient has PT evaluation today. Original Note: I have spoke with this patient today regarding discharge plans: patient stated that he lives at home alone with his dog. Patient stated that his sister and his niece live nextdoor. I have attempted to contact patients sister: no answer but VM left at this time. I will continue to follow up with patient and sister once PT/OT evaluates this patient.
--- NOTE | 2020-12-13 10:28 | HMH.ACPN2 ---
Internal Medicine - PN: Subj *Date: 12/13/20 *Time: 10:32 Interval history: pt sitting up in bed states he is doing well today Exam Vital signs and Labs for Last 24 Hours: Temp Pulse Resp BP Pulse Ox 98.0 F 67 20 177/85 H 99 12/13/20 08:00 12/13/20 08:00 12/13/20 08:00 12/13/20 08:00 12/13/20 08:00 Laboratory Results - last 24 hr 12/13/20 05:35: WBC 6.9 D, RBC 2.98 L, Hgb 9.6 L, Hct 28.7 L, MCV 96.2 H, MCH 32.3 H, MCHC 33.5, RDW 14.3, Plt Count 271, MPV 7.8, Neut % (Auto) 77.0, Lymph % (Auto) 14.8, [place] % (Auto) 5.0, Eos % (Auto) 2.9, Baso % (Auto) 0.3, Neut # (Auto) 5.3, Lymph # (Auto) 1.0, [place] # (Auto) 0.3, Eos # (Auto) 0.2, Baso # (Auto) 0.0 12/13/20 05:35: Sodium 136, Potassium 4.2, Chloride 102, Carbon Dioxide 27, Anion Gap 11.2, BUN 51 H, Creatinine 2.30 H, Estimated Creat Clear 26, Estimated GFR 27 L, Est GFR ( Amer) 33 L, Glucose 194 H, Calcium 8.8 I & O for Last 24 hours: Intake & Output 12/10/20 12/11/20 12/12/20 12/13/20 11:59 11:59 11:59 11:59 Intake Total 100 / 100 240 / 240 600 / 600 800 / 800 Output Total 750 / 750 1000 / 1000 800 / 800 850 / 850 Balance -650 / -650 -760 / -760 -200 / -200 -50 / -50 Weight 175 lb 6.749 oz 168 lb 4 oz 168 lb Microbiology Reports for the Last 24 Hours: Microbiology 12/10/20 07:40 Blood Blood Culture - Preliminary NO GROWTH AFTER 48 HOURS - Constitutional no acute distress, thin - *Routine HEENT Exam Head: Present: normocephalic Eye: Present: PERRL ENT: Present: mucous membranes moist - *Routine Neck Exam Present: supple. Absent: lymphadenopathy - *Routine Respiratory Exam Present: CTA bilaterally - *Routine Cardiovascular Exam Present: RRR, murmur - *Routine Abdominal Exam Present: soft, normoactive bowel sounds. Absent: tenderness - *Routine Extremities Exam Absent: cyanosis, clubbing, edema - *Routine Skin Exam Present: warm. Absent: rash - *Routine Neurological Exam Present: alert - Routine Psychiatric Exam Present: normal affect Assessment and Plan (1) NSTEMI (non-ST elevated myocardial infarction) Status: Acute Category: Medical Code(s): I21.4 - Non-ST elevation (NSTEMI) myocardial infarction (2) Diabetes mellitus type 2 in nonobese Status: Acute Category: Medical Code(s): E11.9 - Type 2 diabetes mellitus without complications (3) CKD (chronic kidney disease) stage 4, GFR 15-29 ml/min Status: Acute Category: Medical Code(s): N18.4 - Chronic kidney disease, stage 4 (severe) (4) Cardiac murmur, unspecified Status: Acute Category: Medical Code(s): R01.1 - Cardiac murmur, unspecified (5) Hypoxemia Status: Acute Category: Medical Code(s): R09.02 - Hypoxemia (6) Elevated brain natriuretic peptide (BNP) level Status: Acute Category: Medical Code(s): R79.89 - Other specified abnormal findings of blood chemistry (7) Pulmonary infiltrate in left lung on CXR Status: Acute Category: Medical Code(s): R91.8 - Other nonspecific abnormal finding of lung field (8) Ischemic cardiomyopathy Status: Acute Category: Medical Code(s): I25.5 - Ischemic cardiomyopathy (9) Acute systolic CHF (congestive heart failure), NYHA class 3 Status: Acute Category: Medical Code(s): I50.21 - Acute systolic (congestive) heart failure - Assessment and plan all Dx Assessment and Plan for all problems:: rounded with dr campos all orders per dr campos follow cardiology recommendations
--- NOTE | 2020-12-13 10:38 | HMH.PNCARD ---
Subjective Date: 12/13/20 Time: 10:38 Principal diagnosis: NSTEMI Interval history: 85-year-old white male in bed in no acute distress. Denies any chest pain, pressure or tightness. Right arm with hematoma related to radial artery tear during radial artery access. Patient still with good pulse and movement of his hand. Limited echocardiogram results pending Renal artery duplex results pending Exam Vital signs and Labs for Last 24 Hours: Temp Pulse Resp BP Pulse Ox 98.0 F 67 20 177/85 H 99 12/13/20 08:00 12/13/20 08:00 12/13/20 08:00 12/13/20 08:00 12/13/20 08:00 Laboratory Results - last 24 hr 12/13/20 05:35: WBC 6.9 D, RBC 2.98 L, Hgb 9.6 L, Hct 28.7 L, MCV 96.2 H, MCH 32.3 H, MCHC 33.5, RDW 14.3, Plt Count 271, MPV 7.8, Neut % (Auto) 77.0, Lymph % (Auto) 14.8, [place] % (Auto) 5.0, Eos % (Auto) 2.9, Baso % (Auto) 0.3, Neut # (Auto) 5.3, Lymph # (Auto) 1.0, [place] # (Auto) 0.3, Eos # (Auto) 0.2, Baso # (Auto) 0.0 12/13/20 05:35: Sodium 136, Potassium 4.2, Chloride 102, Carbon Dioxide 27, Anion Gap 11.2, BUN 51 H, Creatinine 2.30 H, Estimated Creat Clear 26, Estimated GFR 27 L, Est GFR ( Amer) 33 L, Glucose 194 H, Calcium 8.8 I & O for Last 24 hours: Intake & Output 12/10/20 12/11/20 12/12/20 12/13/20 11:59 11:59 11:59 11:59 Intake Total 100 / 100 240 / 240 600 / 600 800 / 800 Output Total 750 / 750 1000 / 1000 800 / 800 850 / 850 Balance -650 / -650 -760 / -760 -200 / -200 -50 / -50 Weight 175 lb 6.749 oz 168 lb 4 oz 168 lb Microbiology Reports for the Last 24 Hours: Microbiology 12/10/20 07:40 Blood Blood Culture - Preliminary NO GROWTH AFTER 48 HOURS - Constitutional no acute distress - *Routine HEENT Exam Head: Present: normocephalic Eye: Present: EOMI, PERRL ENT: Present: mucous membranes moist - *Routine Neck Exam Present: supple. Absent: lymphadenopathy - *Routine Respiratory Exam Present: CTA bilaterally - *Routine Cardiovascular Exam Present: RRR - *Routine Abdominal Exam Present: soft, normoactive bowel sounds. Absent: tenderness - *Routine Extremities Exam Absent: cyanosis, clubbing, edema Comments: Hematoma starting at right radial area and extending up to mid humerus towards the axilla. - *Routine Skin Exam Present: warm. Absent: rash - *Routine Neurological Exam Present: alert, oriented X3 Progress Note: A&P (1) NSTEMI (non-ST elevated myocardial infarction) Status: Acute Assessment and plan: Status post JOCELYN to RCA and LAD. Continue aspirin and Brilinta therapy. (2) Diabetes mellitus type 2 in nonobese Status: Acute (3) CKD (chronic kidney disease) stage 4, GFR 15-29 ml/min Status: Acute Assessment and plan: Stable at this time. Pending results of renal artery duplex will consider starting ARB therapy. (4) Cardiac murmur, unspecified Status: Acute Assessment and plan: Aortic sclerosis on echocardiogram without significant stenosis. Moderate mitral regurgitation noted. (5) Hypoxemia Status: Acute (6) Elevated brain natriuretic peptide (BNP) level Status: Acute (7) Pulmonary infiltrate in left lung on CXR Status: Acute (8) Ischemic cardiomyopathy Status: Acute Assessment and plan: Ejection fraction prior to cardiac cath and stenting was 30%. Limited repeat echo today is pending but appears to be slightly improved. Patient is having reperfusion arrhythmias (PVCs, ventricular bigeminy) on telemetry without sustained ventricular tachycardia. Continue to monitor. Discussed LifeVest pending results of limited echo. Patient is interested. (9) Acute systolic CHF (congestive heart failure), NYHA class 3 Status: Acute Assessment and plan: Clinically stable at this time. Continue Lasix and spironolactone therapy while monitoring renal function. Assessment and Plan for All Diagnoses:: See above Continue to monitor Await results of echo and renal artery dupl
--- NOTE | 2020-12-13 10:42 | PC.NURSE ---
PT / OT at to evaluate pt for therapy. Pt transfers easily with 1 person, stand-by, assist to chair. However, with the smallest of tasks or movement, pt's O2 sats drop as low as 70's. Oxygen saturation is quick to recover when pt stops his exertion. No matter how small the task or movement, O2 sats will drop. But, they are quick to return to acceptable readings (>92%). During the times of oxygen levels dropping , Pt remains asymptomatic. No SOB, no change skin color, no distress or change in breathing pattern note. Pt remains on Room Air.
--- NOTE | 2020-12-13 11:08 | HMH.PTEV ---
Physical Therapy Evaluation Rehab PT IP Evaluation Start: 12/13/20 09:49 Freq: ONCE Status: Active Protocol: Document 12/13/20 11:03 HODAN (Rec: 12/13/20 11:08 HODAN [id number]) Subjective/History History History THis is th einitial IP PT evaluation for Armond Mena. Pt is an 85 y/o male admitted to [facility] for Non-STEMI. Pt lives in apartment alone w/ dog. Pt does have daughter and niec who live close and check in on him. Subjective Subjective pt is slightly confused - unable to state place at time of eval Rehab PT IP Eval Objective Appearance Patient Behavior Appropriate,Cooperative, Confused Patient Orientation Person,Year Difficulty following instructions none Speech Pattern Clear,Appropriate Ambulation Patient Able to Ambulate Yes Ambulation Observation IP General Gait Pattern Observation Shuffling Step Ambulation Distance (feet) 5 Ambulation Assistive Device None Ambulation Ability Contact Guard/Hand Hold Balance Ability to Arise Able, uses arms to help Sitting Balance Steady, safe Standing Balance Steady, wide stance Dynamic Sitting Balance Ability Good Dynamic Standing Balance Ability Poor Transfers Bed Transfer Ability Supervision/Stand by Chair Transfer Ability Supervision/Stand by Sit to Stand Bed Transfer Ability Contact Guard/Hand Hold Sit to Stand Chair Transfer Ability Contact Guard/Hand Hold Rehab PT IP prob,goals,plan Problems Date of Evaluation: 12/13/20 PT IP Problems Transfers,Gait,Balance,Self care,Safety Rehab Potential Rehab Potential Good Equipment Needs Assistive Devices Straight Cane,Rolling / Wheeled Walker Plan PT Intervention Plan Transfers,Gait,Balance,Safety, Therapeutic Exercise PT Plan Frequency BID Duration LOS Discharge Goals Bed Transfer Ability Supervision/Stand by Sit to Stand Chair Transfer Ability Supervision/Stand by Ambulation Assistive Device Straight Cane,Rolling Walker Ambulation Distance (feet) 25 Discharge Plan PT Discharge Plan pt to return home once medically stable - pt could benefit from skilled HHPT or OPPT and/or cardiac therapy -
--- NOTE | 2020-12-13 16:16 | PC.NURSE ---
Sitting up in chair asleep
--- NOTE | 2020-12-13 19:06 | PC.NURSE ---
Notified by Mariya Gee of pt's heartrate being in the 200s. Upon entering room to check on pt, pt found sitting in recliner chair with head tilted back, eyes open and fixed, mouth wide open, unresponsive and heart rate in the 260s..Code was called.
--- NOTE | 2020-12-13 19:07 | PC.NURSE ---
spoke with md hutson. ordered amidarone bolus and then an amiodarone drip. make pt npo for a defib placement tomorrow.
--- NOTE | 2020-12-13 19:16 | ECG_ITS ---
APPROVED REPORT Exam: Resting ECG HR:84 bpm ECG Measurements Heart Rate 84 AXES AK 118 P 12 QRSd 88 QRS -6 QT 382 T 226 QTc 451 Conclusion Sinus rhythm with premature supraventricular complexes Marked ST abnormality, possible anterior subendocardial injury Abnormal ECG Electronically signed by : Isaias Conner, 12/14/2020 21:02:01
--- NOTE | 2020-12-13 19:26 | XR_ITS ---
PROCEDURE: XR CHEST PORTABLE CLINICAL HISTORY: CODE Code blue COMPARISON: CR XR CHEST PORTABLE from 12/10/2020 CR XR CHEST PORTABLE from 12/11/2020 FINDINGS: Mild cardiomegaly. Opacification is present in the left upper and left lower lobe and lower lobe consistent bilateral pneumonia. CHF has shown improvement from previous study. Right-sided pneumonia peers also slightly improved. No acute bony abnormalities. IMPRESSION: Bilateral pneumonia slightly improved on the right unchanged on the left with some improvement in CHF Dictated by: Anil Loja MD 12/13/2020 19:33 Anil Loja MD in OV 12/13/2020 19:33
--- NOTE | 2020-12-13 19:34 | PC.NURSE ---
Notified pt's sister of pt coding. Had very lengthy conversation with her to help her understand the situation and how he is currently doing..She was upset and concerned about the fact that CM was calling her today and notifying her of the fact that he was being discharged home tomorrow and that he needed to be able to have someone to help him. She was concerned and under the impression that because she was informed that he was doing good with his physical therapy per CM that physical therapy meant that he had been on a treadmill and that him coding was because he over did it with his therapy . Reiterated with her that what happened to him could happen at any time to anyone and that he was stable now and encouraged her to feel free to call at anytime during the night and check on him.
--- NOTE | 2020-12-13 20:08 | PC.NURSE ---
1858: Pt unconscious and apneic sitting in chair, transferred to bed and cpr started 190: cpr stopped rhythm vtach, shocked with 120j, no pulse after shock and cpr restarted 190: dr byrd in room at this time 1903: epi 1mg iv given at this time 1904: rhythm checked vtach noted, pt shocked again with 150j 1905: dr hutson on phone, new orders received for amiodorone bolus of 150mg over 20 mins and then amiodorone drip to continue 190: calcium 1g given iv, ns bolus started, sinus tachycardia noted on monitor with pulse of 140 1906: nonrebreather mask applied at 10l 1907: sinus tachycardia continues on monitor with rate of 136 19:10: dr Payne notified at this time of pts condition, no new orders, nsr noted on monitor with rate of 90, bp 142/84, and 16 fr sandoval catheter anchored at this time 19:13 Ativan 2mg given iv at this time 19:14 Amiodorone 150mg bolus started at this time 19:15 NSR noted with rate of 94, family notified by Genny Suarez RN at this time 19:17 new order for cxr stat 19:18 dr byrd left room at this time 19:20 EKG completed 19:21 cxr completed at this time Staff present for code were Dylan Hunter RN, Ivory Winkler communications associate, Imelda Dillon RN, Imelda Garcia RN, Genny Suarez RN, Dylan Mcdaniels RN, Kari Vincent RN, Marlon Wills RN, Kari Werner RN, Kari Lazar RN, Dr Byrd, Dylan Segura respiratory therapist, Lisa respiratory therapist
--- NOTE | 2020-12-13 20:18 | PC.NURSE ---
Report to SuleimanRN
[2020-12-14] VITALS (26 sets, daily range): BP systolic 86–128; BP diastolic 44–78; PULSE 59–83; RESP 15–20; TEMP 36.4–36.8; O2SAT 87–100; BMI 22.6
--- NOTE | 2020-12-14 | IR_ITS ---
APPROVED REPORT Patient Location: Inpatient Strategic Consultant: MARLA Barnhart RT (R) PROCEDURES 1. Pocket formation for AICD. 2. Placement of atrial sensing and pacing coil into the right atrial appendage. 3. Placement of a ventricular sensing, pacing and shocking coil in the right ventricular apex. 4. Permanent AICD placement. INDICATION Systolic Congestive Heart Failure, ejection < 35%, [place] Heart Assoication Class 3 Congestive Heart Failure Informed consent was obtained prior to the procedure. COMPLICATIONS None Estimated Blood Loss: less than 10ml TECHNIQUE 1% Lidocaine with epinephrine used to anesthetized the left anterior aspect of the chest. Scalpel was used to make the initial cutaneous incision while electrocautery was used to dissect down tinto the fascia. The fascia was lifted off the pectoralis muscle and digitally manipulated creating a pocket for the defibrillator. The patient was then placed in Trendelenburg position and the subclavian vein was accessed 3 times via the Selinger technique. A 8 [place] sheath was placed under fluoroscopic guidance into the subclavian vein. The dilator was removed from the sheath. Using fluoroscopic guidance, the ventricular lead was placed into the right ventricular apex, screwed and secured into place. Electronic interrogation proved acceptable thresholds and voltage within the lead. Using 3-0 silk, the ventricular lead was then secured into place and sheath peeled away. Following this, a 9.5 [place] sheath and dilator was then placed over one of the wires while keeping the other wire in place within the subclavian vein. The dilator was removed from the sheath. Using fluoroscopic guidance, contrast was used to visualize the coronary sinus, the left ventricular lead was placed into the coronary sinus. Electronic interrogation proved acceptable thresholds and voltage within the lead. Using 3-0 silk, the left ventricular lead was then secured into place and sheath peeled away.An additional 6 [place] fresh sheath and dilator was placed over the existing wire. Using fluoroscopic guidance, the atrial lead was then placed into the right atrial appendage and screwed and secured in place. Electrical interrogation demonstrated acceptable thresholds and voltage number. The atrial lead was then secured into place using 3-0 silk and sheath peeled away. 1 gram of Ancef was used to flush the pocket. All 3 leads were connected to generator and tested via computer. The defibrillator then secured to the fascia. Monocryl was used to close the subcutaneous layers while timoteo were used to close the cutaneous layer. A pressure dressing was placed and the patient was transferred to the postop holding area in stable condition for postoperative care. INTERROGATION Livelens Generator Model number: Vigilant D233 Generator Serial number: [id number] Atrial lead model number: Ingevity 7841 Atrial lead serial number: [id number] P-wave: 2.0 mV Impedence: 548 Ohms Threshold: 1.5 V @ 0.4 Right Ventricular lead model number: [place]hey 0675 Right Ventricular lead serial number: [id number] R-wave: 12mV Impedence: 515 Ohms Threshold: 1.0V@0.4 ms Pacing Parameters: Mode: DDDD Base/Max Track: 60/130 ppm ICD Rate Cutoffs: VT: 170 bpm, 5.0 sec, ATP 41J x 6 VF: 200 bpm 2.5 sec, Quick convert, 41J x 8 No diaphragmatic stimulation at 10 volts. IMPRESSION 1. Successful pocket formation for AICD. 2. Successful placement of atrial sensing and pacing coil into the right atrial appendage. 3. Successful placement of a ventricular sensing, pacing and shocking coil in the right ventricular apex. 4. Successful permanent AICD pl
--- NOTE | 2020-12-14 06:58 | PC.NURSE ---
IV access lost, after multiple attempts from primary RN to restart IV, this RN was notified. New IV access obtained at 0640, and Amiodarone drip restarted. Access obtained #[id number] right AC, 1 attempt per this RN.
[2020-12-14 07:22] LABS: Anion Gap 13.8 mEq/L (5-15); Blood Urea Nitrogen 54 mg/dl (9-20); Calcium 9.2 mg/dl (8.4-10.2); Carbon Dioxide 25 mmol/L (22.0-30.0); Chloride 101 mmol/L (98-107); Creatinine Clearance Estimated 27 mL/min (50-200); Estimated Glomerular Filt Rate 29 ml/min (>60); GFR (African American) 35 ML/MIN (>60); Glucose 229 mg/dl (74-100); Potassium 4.8 mmoL/L (3.5-5.1); Sodium 135 mmol/L (136-145)
--- NOTE | 2020-12-14 07:48 | PC.NURSE ---
pt is alert and oriented this morning. he was confused post code and restless. periods of combativeness and resistance to care. this is much improved. new iv placed and infusing per order. amniodrone drip is at 17ml/hr now. sandoval was placed and draining elza urine. call light in reach. bed alarm on. vss. will continue to monitor
--- NOTE | 2020-12-14 08:56 | HMH.PNCARD ---
Subjective Date: 12/14/20 Time: 08:56 Principal diagnosis: NSTEMI Interval history: 85-year-old white male in bed in no acute distress. He does complain of some chest discomfort after the events of last evening included CPR and cardioversion x2. Reportedly patient was noted to have tachycardia (>200 bpm) on the monitor and upon the nurse checking on the patient found him unresponsive and CPR was started with code being called. Reportedly patient had return of rhythm in the form of ventricular fibrillation and ventricular tachycardia requiring cardioversion x2. Amiodarone bolus and drip was started and patient has remained in sinus rhythm since. He is scheduled for ICD implantation later today. Risk, benefits and procedure explained to the patient and he wishes to proceed. Exam Vital signs and Labs for Last 24 Hours: Temp Pulse Resp BP Pulse Ox 98.2 F 62 17 107/54 L 97 12/14/20 07:00 12/14/20 07:00 12/14/20 07:00 12/14/20 07:00 12/14/20 07:00 Laboratory Results - last 24 hr 12/14/20 05:40: Sodium 135 L, Potassium 4.8, Chloride 101, Carbon Dioxide 25, Anion Gap 13.8, BUN 54 H, Creatinine 2.20 H, Estimated Creat Clear 27, Estimated GFR 29 L, Est GFR ( Amer) 35 L, Glucose 229 H, Calcium 9.2 I & O for Last 24 hours: Intake & Output 12/11/20 12/12/20 12/13/20 12/14/20 11:59 11:59 11:59 11:59 Intake Total 240 / 240 600 / 600 800 / 800 780 / 780 Output Total 1000 / 1000 800 / 800 850 / 850 Balance -760 / -760 -200 / -200 -50 / -50 780 / 780 Weight 168 lb 4 oz 168 lb 167 lb 1 oz - Constitutional no acute distress - *Routine HEENT Exam Head: Present: normocephalic Eye: Present: EOMI, PERRL ENT: Present: mucous membranes moist - *Routine Neck Exam Present: supple. Absent: lymphadenopathy - Routine Chest/Breast/Axilla Exam Chest wall: Present: tenderness - *Routine Respiratory Exam Present: decreased breath sounds, rhonchi - *Routine Cardiovascular Exam Present: RRR - *Routine Abdominal Exam Present: soft, normoactive bowel sounds. Absent: tenderness - *Routine Extremities Exam Absent: cyanosis, clubbing, edema - *Routine Skin Exam Present: warm. Absent: rash - *Routine Neurological Exam Present: alert, oriented X3 Progress Note: A&P (1) NSTEMI (non-ST elevated myocardial infarction) Status: Acute (2) Diabetes mellitus type 2 in nonobese Status: Acute (3) CKD (chronic kidney disease) stage 4, GFR 15-29 ml/min Status: Acute (4) Cardiac murmur, unspecified Status: Acute (5) Hypoxemia Status: Acute (6) Elevated brain natriuretic peptide (BNP) level Status: Acute (7) Pulmonary infiltrate in left lung on CXR Status: Acute (8) Ischemic cardiomyopathy Status: Acute (9) Acute systolic CHF (congestive heart failure), NYHA class 3 Status: Acute (10) Cardiac arrest Status: Acute (11) Ventricular fibrillation seen on crm administrator Status: Acute (12) Ventricular tachycardia seen on crm administrator Status: Acute (13) Anemia Status: Acute Assessment and Plan for All Diagnoses:: 1. NSTEMI with JOCELYN to RCA and LAD. On ASA and brilinta. 2. Cardiac arrest due to V. Fib and V. Tach, s/p cardioversion X 2. Now on IV amiodarone with plans for AICD implant this AM. 3. Isch CM with EF of 30%, now on coreg, irbesartan, furosemide and spironolactone. 4. CKD, slightly improved with Cr 2.2 today. 5. Bilateral pneumonia with concern for aspiration during events of last evening, defer to PCP. 6. DM, defer to PCP. Consider SGLT2 inhibitor due to cardiac issues. 7. Anemia, Hgb 9.6 yesterday, repeat in AM. If Hgb continues to be below 10 then consider transfusion.
[2020-12-14 09:46] LABS: Magnesium 1.9 mg/dl (1.6-2.3)
--- NOTE | 2020-12-14 10:16 | PC.NURSE ---
PT OFF FLOOR WITH MARY BRODERICK RN FROM [employer].
--- NOTE | 2020-12-14 12:39 | XR_ITS ---
PROCEDURE: XR CHEST PORTABLE CLINICAL HISTORY: Confirm pacemaker/AID placement COMPARISON: CR XR CHEST PORTABLE from 12/10/2020 CR XR CHEST PORTABLE from 12/11/2020 CR XR CHEST PORTABLE from 12/13/2020 FINDINGS: There is cardiomegaly with pulmonary venous congestion consistent with CHF. There are low lung volumes with small bilateral effusions. There is increased density in the mid and lower lung zone on both sides and may be related to edema or pneumonia. The CHF appears worse but could be related to the low lung volumes. A bipolar pacemaker is present from left subclavian approach. Right atrial and right ventricular leads are present with good position on the AP plane. No evidence of pneumothorax. IMPRESSION: Status post pacemaker placement with good lead position and no evidence of pneumothorax. CHF with edema and/or pneumonia and effusions Dictated by: Anil Loja MD 12/14/2020 13:01 Anil Loja MD in [facility] 12/14/2020 13:01
--- NOTE | 2020-12-14 13:32 | PC.NURSE ---
per md hutson, finish bag of amidarone and then pt will be switched to oral.
--- NOTE | 2020-12-14 13:47 | HMH.ACPN2 ---
Internal Medicine - PN: Subj *Date: 12/14/20 *Time: 18:33 Interval history: 85-year-old male patient sitting up in bed, no shortness of breath noted, he does complain of some midsternal chest discomfort. Patient was noted to have a heart rate last evening greater than 200 bpm showing on the monitor. When the nurse checked the patient she found him unresponsive, CPR was started and CODE BLUE initiated. Patient had ventricular fibrillation and ventricular tachycardia showing on monitor patient then received cardioversion x2. Amiodarone bolus was given and agreed her amiodarone drip was initiated. Patient is remained in sinus rhythm since that time he will be going for an ICD today. Vital signs currently blood pressure 107/54, pulse of 62, oxygen saturations 98% on room air Exam Vital signs and Labs for Last 24 Hours: Temp Pulse Resp BP Pulse Ox 98.1 F 60 16 102/50 L 100 12/14/20 13:28 12/14/20 13:30 12/14/20 13:30 12/14/20 13:30 12/14/20 13:30 Laboratory Results - last 24 hr 12/14/20 05:40: Sodium 135 L, Potassium 4.8, Chloride 101, Carbon Dioxide 25, Anion Gap 13.8, BUN 54 H, Creatinine 2.20 H, Estimated Creat Clear 27, Estimated GFR 29 L, Est GFR ( Amer) 35 L, Glucose 229 H, Calcium 9.2 12/14/20 05:40: Magnesium 1.9 I & O for Last 24 hours: Intake & Output 12/11/20 12/12/20 12/13/20 12/14/20 23:59 23:59 23:59 23:59 Intake Total 240 / 240 920 / 920 1020 / 1020 0 / 0 Output Total 950 / 1200 800 / 800 300 / 300 Balance -710 / -960 120 / 120 720 / 720 0 / 0 Weight 168 lb 4 oz 168 lb 167 lb 1 oz - Constitutional no acute distress - *Routine HEENT Exam Head: Present: normocephalic Eye: Present: EOMI ENT: Present: mucous membranes moist - *Routine Neck Exam Present: trachea midline. Absent: tracheal deviation - *Routine Respiratory Exam Present: decreased breath sounds, rhonchi. Absent: accessory muscle use - *Routine Cardiovascular Exam Present: RRR, tachycardia. Absent: murmur, bradycardia - *Routine Abdominal Exam Present: soft, normoactive bowel sounds. Absent: rigid, organomegaly - *Routine Extremities Exam Present: full ROM, pulses intact. Absent: cyanosis, clubbing, calf tenderness - *Routine Skin Exam Present: intact, dry, warm. Absent: cyanosis, lesions - *Routine Neurological Exam Present: alert, oriented X3. Absent: sensory deficit - Routine Psychiatric Exam Present: normal affect, normal thought process Assessment and Plan (1) NSTEMI (non-ST elevated myocardial infarction) Status: Acute Category: Medical Code(s): I21.4 - Non-ST elevation (NSTEMI) myocardial infarction (2) Diabetes mellitus type 2 in nonobese Status: Acute Category: Medical Code(s): E11.9 - Type 2 diabetes mellitus without complications (3) CKD (chronic kidney disease) stage 4, GFR 15-29 ml/min Status: Acute Category: Medical Code(s): N18.4 - Chronic kidney disease, stage 4 (severe) (4) Cardiac murmur, unspecified Status: Acute Category: Medical Code(s): R01.1 - Cardiac murmur, unspecified (5) Hypoxemia Status: Acute Category: Medical Code(s): R09.02 - Hypoxemia (6) Elevated brain natriuretic peptide (BNP) level Status: Acute Category: Medical Code(s): R79.89 - Other specified abnormal findings of blood chemistry (7) Pulmonary infiltrate in left lung on CXR Status: Acute Category: Medical Code(s): R91.8 - Other nonspecific abnormal finding of lung field (8) Ischemic cardiomyopathy Status: Acute Category: Medical Code(s): I25.5 - Ischemic cardiomyopathy (9) Acute systolic CHF (congestive heart failure), NYHA class 3 Status: Acute Category: Medical Code(s): I50.21 - Acute systolic (congestive) heart failure (10) Cardiac arrest Status: Acute Category: Medical Code(s): I46.9 - Cardiac arrest, cause unspecified (11) Ventricular fibrillation seen on property assessment monitor Status: Acute Category: Medical Code(s):
--- NOTE | 2020-12-14 18:06 | PC.NURSE ---
PT HAS DONE WELL TODAY. NO COMPLAINTS BEFORE OR AFTER PROCEDURE. LEFT UPPER CHEST SITE IS CDI, NO HEMATOMA NOTED. PT EDUCATED ON KEEPING ARM DOWN AND NOT LIFTING IT OVER HIS HEAD. VERBALIZED UNDERSTANDING. [place] CATH IN PLACE, DRAINING ADEQUATE AMOUNT OF URINE. AMIODARONE GTT STILL INFUSING AT THIS TIME- PER DR. INTERIANO PT IS TO FINISH THIS BAG. VSS. WILL CONT. TO MONITOR.
[2020-12-15] VITALS (26 sets, daily range): BP systolic 68–125; BP diastolic 37–58; PULSE 60–77; RESP 16–20; TEMP 36.7–36.9; O2SAT 98–100; BMI 22.4
--- NOTE | 2020-12-15 05:24 | PC.NURSE ---
Pt A&O to person and birthday but did not know where he was. Pt slept on and off through the night c/o soreness around his ribs. Pt has been on room air. Left upper chest incision C/D/I with scant amount of drainage noted. Giraldo draining adequate urine. No other c/o of pain or discomfort. Lungs CTA. bowel sounds x4, abd soft, nontender. No edema noted. VSS, call light in reach, no concerns at this time.
[2020-12-15 06:31] LABS: Basophils % 0.3 % (0.1-2.0); Eosinophils # 0.3 K/mm3 (0.0-0.4); Eosinophils % 4.1 % (0.1-12.0); Hematocrit 26.3 % (42.0-52.0); Hemoglobin 8.8 g/dL (14.1-18.0); Lymphocytes # 0.6 K/mm3 (0.7-4.5); Mean Corpuscular HGB Conc 33.6 g/dL (31.8-35.4); Mean Corpuscular Hemoglobin 33.2 pg (27.0-31.2); Mean Corpuscular Volume 98.9 fl (80-94); Mean Platelet Volume 8.1 fl (7.4-10.4); Monocytes # 0.4 K/mm3 (0.1-1.0); Neutrophils % 81.6 % (37.0-80.0); Platelet Count 211 K/mm3 (142-424); Red Blood Count 2.66 M/mm3 (4.60-6.20); Red Cell Distribution Width 15.2 % (11.5-17.5); White Blood Count 7.3 K/mm3 (4.8-10.8)
[2020-12-15 06:33] LABS: Anion Gap 10.9 mEq/L (5-15); Blood Urea Nitrogen 51 mg/dl (9-20); Calcium 8.5 mg/dl (8.4-10.2); Carbon Dioxide 27 mmol/L (22.0-30.0); Chloride 101 mmol/L (98-107); Creatinine Clearance Estimated 28 mL/min (50-200); Estimated Glomerular Filt Rate 30 ml/min (>60); GFR (African American) 37 ML/MIN (>60); Glucose 204 mg/dl (74-100); Potassium 3.9 mmoL/L (3.5-5.1); Sodium 135 mmol/L (136-145)
--- NOTE | 2020-12-15 07:00 | ECG_ITS ---
APPROVED REPORT Exam: Resting ECG HR:66 bpm ECG Measurements Heart Rate 66 AXES PA 172 P 43 QRSd 100 QRS 45 QT 516 T 229 QTc 540 Conclusion Normal sinus rhythm ST & T wave abnormality, unchanged from prior Prolonged QT Abnormal ECG Electronically signed by : Isaias Conner, 12/16/2020 20:58:21
--- NOTE | 2020-12-15 08:03 | HMH.PNCARD ---
Subjective Date: 12/15/20 Time: 08:03 Principal diagnosis: NSTEMI Interval history: 85-year-old white male in bed in no acute distress. Appears confused and is unsure as to where he is located. He felt that he was at home initially but I corrected him and he remembered he was in the hospital. Complains of chest soreness due to CPR. Pacemaker insertion site looks good. EKG this morning is sinus rhythm with QTC recorded at 540 but visibly does not appear to be that long. Exam Vital signs and Labs for Last 24 Hours: Temp Pulse Resp BP Pulse Ox 98.3 F 60 18 106/52 L 100 12/15/20 04:00 12/15/20 05:00 12/15/20 04:00 12/15/20 05:00 12/15/20 05:00 Laboratory Results - last 24 hr 12/14/20 05:40: Magnesium 1.9 12/15/20 05:39: WBC 7.3, RBC 2.66 L, Hgb 8.8 L, Hct 26.3 L, MCV 98.9 H, MCH 33.2 H, MCHC 33.6, RDW 15.2, Plt Count 211, MPV 8.1, Neut % (Auto) 81.6 H, Lymph % (Auto) 8.0 L, Davis % (Auto) 6.0, Eos % (Auto) 4.1, Baso % (Auto) 0.3, Neut # (Auto) 6.0, Lymph # (Auto) 0.6 L, Davis # (Auto) 0.4, Eos # (Auto) 0.3, Baso # (Auto) 0.0 12/15/20 05:39: Sodium 135 L, Potassium 3.9, Chloride 101, Carbon Dioxide 27, Anion Gap 10.9, BUN 51 H, Creatinine 2.10 H, Estimated Creat Clear 28, Estimated GFR 30 L, Est GFR ( Amer) 37 L, Glucose 204 H, Calcium 8.5 I & O for Last 24 hours: Intake & Output 12/12/20 12/13/20 12/14/20 12/15/20 11:59 11:59 11:59 11:59 Intake Total 600 / 600 800 / 800 780 / 780 220 / 220 Output Total 800 / 800 850 / 850 750 / 750 Balance -200 / -200 -50 / -50 780 / 780 -530 / -530 Weight 168 lb 167 lb 1 oz 165 lb 7 oz Microbiology Reports for the Last 24 Hours: Microbiology 12/10/20 07:40 Blood Blood Culture - Final NO GROWTH AFTER 5 DAYS 12/10/20 01:50 Blood Blood Culture - Final NO GROWTH AFTER 5 DAYS - Constitutional no acute distress - *Routine Respiratory Exam Present: CTA bilaterally - *Routine Cardiovascular Exam Present: RRR - *Routine Neurological Exam Present: alert Progress Note: A&P (1) NSTEMI (non-ST elevated myocardial infarction) Status: Acute (2) Diabetes mellitus type 2 in nonobese Status: Acute (3) CKD (chronic kidney disease) stage 4, GFR 15-29 ml/min Status: Acute (4) Cardiac murmur, unspecified Status: Acute (5) Hypoxemia Status: Acute (6) Elevated brain natriuretic peptide (BNP) level Status: Acute (7) Pulmonary infiltrate in left lung on CXR Status: Acute (8) Ischemic cardiomyopathy Status: Acute (9) Acute systolic CHF (congestive heart failure), NYHA class 3 Status: Acute (10) Cardiac arrest Status: Acute (11) Ventricular fibrillation seen on manager construction Status: Acute (12) Ventricular tachycardia seen on manager construction Status: Acute (13) Anemia Status: Acute Assessment and Plan for All Diagnoses:: 1. Non-ST elevation OR status post coronary stenting to RCA, left main and LAD. On ASA and brilinta. 2. V. fib arrest, s/p cardioversion. Now on amiodarone after AICD implantation yesterday. 3. Ischemic CM, on coreg and irbesartan along with diuretic therapy. 4. CKD, slowly improving with Cr 2.1 5. Confusion likely related to cardiac arrest yesterday along with IV sedation. Defer workup to PCP. Recommend watching overnight with repeat EKG in AM to monitor QTc and to see if confusion and CKD improves.
--- NOTE | 2020-12-15 09:35 | HMH.ACPN2 ---
Internal Medicine - PN: Subj *Date: 12/15/20 *Time: 09:35 Interval history: pt sitting up in bed states he feels fine Exam Vital signs and Labs for Last 24 Hours: Temp Pulse Resp BP Pulse Ox 98.5 F 60 18 106/52 L 100 12/15/20 08:00 12/15/20 05:00 12/15/20 04:00 12/15/20 05:00 12/15/20 05:00 Laboratory Results - last 24 hr 12/14/20 05:40: Magnesium 1.9 12/15/20 05:39: WBC 7.3, RBC 2.66 L, Hgb 8.8 L, Hct 26.3 L, MCV 98.9 H, MCH 33.2 H, MCHC 33.6, RDW 15.2, Plt Count 211, MPV 8.1, Neut % (Auto) 81.6 H, Lymph % (Auto) 8.0 L, Bowman % (Auto) 6.0, Eos % (Auto) 4.1, Baso % (Auto) 0.3, Neut # (Auto) 6.0, Lymph # (Auto) 0.6 L, Bowman # (Auto) 0.4, Eos # (Auto) 0.3, Baso # (Auto) 0.0 12/15/20 05:39: Sodium 135 L, Potassium 3.9, Chloride 101, Carbon Dioxide 27, Anion Gap 10.9, BUN 51 H, Creatinine 2.10 H, Estimated Creat Clear 28, Estimated GFR 30 L, Est GFR ( Amer) 37 L, Glucose 204 H, Calcium 8.5 I & O for Last 24 hours: Intake & Output 12/12/20 12/13/20 12/14/20 12/15/20 11:59 11:59 11:59 11:59 Intake Total 600 / 600 800 / 800 780 / 780 460 / 460 Output Total 800 / 800 850 / 850 750 / 750 Balance -200 / -200 -50 / -50 780 / 780 -290 / -290 Weight 168 lb 167 lb 1 oz 165 lb 7 oz Microbiology Reports for the Last 24 Hours: Microbiology 12/10/20 07:40 Blood Blood Culture - Final NO GROWTH AFTER 5 DAYS 12/10/20 01:50 Blood Blood Culture - Final NO GROWTH AFTER 5 DAYS - Constitutional no acute distress, thin - *Routine HEENT Exam Head: Present: normocephalic Eye: Present: PERRL ENT: Present: mucous membranes moist - *Routine Neck Exam Present: supple. Absent: lymphadenopathy - *Routine Respiratory Exam Present: CTA bilaterally - *Routine Cardiovascular Exam Present: RRR - *Routine Abdominal Exam Present: soft, normoactive bowel sounds. Absent: tenderness - *Routine Extremities Exam Absent: cyanosis, clubbing, edema Comments: dressing to rt wrist - *Routine Skin Exam Present: warm. Absent: rash Comments: dressing to rt wrist c/d/i dressing to left chest c/d/i - *Routine Neurological Exam Present: alert - Routine Psychiatric Exam Present: normal affect Assessment and Plan (1) NSTEMI (non-ST elevated myocardial infarction) Status: Acute Category: Medical Code(s): I21.4 - Non-ST elevation (NSTEMI) myocardial infarction (2) Diabetes mellitus type 2 in nonobese Status: Acute Category: Medical Code(s): E11.9 - Type 2 diabetes mellitus without complications (3) CKD (chronic kidney disease) stage 4, GFR 15-29 ml/min Status: Acute Category: Medical Code(s): N18.4 - Chronic kidney disease, stage 4 (severe) (4) Cardiac murmur, unspecified Status: Acute Category: Medical Code(s): R01.1 - Cardiac murmur, unspecified (5) Hypoxemia Status: Acute Category: Medical Code(s): R09.02 - Hypoxemia (6) Elevated brain natriuretic peptide (BNP) level Status: Acute Category: Medical Code(s): R79.89 - Other specified abnormal findings of blood chemistry (7) Pulmonary infiltrate in left lung on CXR Status: Acute Category: Medical Code(s): R91.8 - Other nonspecific abnormal finding of lung field (8) Ischemic cardiomyopathy Status: Acute Category: Medical Code(s): I25.5 - Ischemic cardiomyopathy (9) Acute systolic CHF (congestive heart failure), NYHA class 3 Status: Acute Category: Medical Code(s): I50.21 - Acute systolic (congestive) heart failure (10) Cardiac arrest Status: Acute Category: Medical Code(s): I46.9 - Cardiac arrest, cause unspecified (11) Ventricular fibrillation seen on cardiac rehabilitation specialist Status: Acute Category: Medical Code(s): I49.01 - Ventricular fibrillation (12) Ventricular tachycardia seen on cardiac rehabilitation specialist Status: Acute Category: Medical Code(s): I47.2 - Ventricular tachycardia (13) Anemia Status: Acute
--- NOTE | 2020-12-15 17:12 | DIET.NUTRFU ---
Pt with declining PO intakes- avg. 25% past 72h, refusing at times. Weight loss of 8# t/o stay. BG moderate-high- avg. 280. Renal function stable. Diet partially liberalized from low sodium to no added salt and varied diabetic supplements added to diet order. Continuing to monitor.
--- NOTE | 2020-12-15 18:42 | PC.NURSE ---
Alert to self. He reports soreness in chest. Pt repositioned and reported some relief. He has been up to the chair most of the shift. He has ambulated to the BR with 1 assist and tolerates well. He had an episode of nausea that was effectively treated with zofran. He has been hypotensive the last half of the shift. Dr Vale notified. Pt has had 2 - 250ml boluses which pt stated made him feel better. He no longer reports being dizzy although he is still hypotensive. His sanodval is draining to bedside with approx 500 mls out this shift. He has had a few loose stools. Sister called and updated on pts condition. Will report to oncoming nurse.
--- NOTE | 2020-12-15 22:58 | PC.NURSE ---
2100 COURTESY ROUND TRASH EMPTIED AND GLOVES REFILLED
[2020-12-16] VITALS (27 sets, daily range): BP systolic 82–120; BP diastolic 35–75; PULSE 60–68; RESP 16–20; TEMP 36.4–37; O2SAT 91–100; BMI 22.4
--- NOTE | 2020-12-16 04:24 | PC.NURSE ---
Pt alert to self and has slept well through the night. Pt ambulated with 1 assist to the bathroom x2 and tolerated well. Pt on room air, sats in the high 90s. Only c/o of pain is to the the area around ribs when moving positions but did not affect pt sleep. Pt was hypotensive at several points through the night but was asymptomatic. Pt had one episode of loose stool. Giraldo draining adequate yellow urine. VSS, call light in reach, no concerns at this time.
--- NOTE | 2020-12-16 07:00 | PC.NURSE ---
0600 COURTESY ROUND TRASH EMPTIED AND WATER REFILLED
--- NOTE | 2020-12-16 09:32 | XR_ITS ---
PROCEDURE: XR CHEST PORTABLE CLINICAL HISTORY: CP Chest pain COMPARISON: CR XR CHEST PORTABLE from 12/11/2020 CR XR CHEST PORTABLE from 12/13/2020 CR XR CHEST PORTABLE from 12/14/2020 FINDINGS: There has been placement a bipolar pacemaker from the left subclavian approach. Skin clips are present along the power pack of the pacemaker. CHF has improved. There is some increased density in both lung bases which could be due to some residual edema. No evidence of pneumothorax. Degenerative changes of the shoulders. IMPRESSION: Improvement of CHF. Bibasilar edema or infiltrate/atelectatic changes noted. Prior pacemaker placement. Dictated by: Anil Loja MD 12/16/2020 10:18 Anil Loja MD in [facility] 12/16/2020 10:18
--- NOTE | 2020-12-16 09:32 | HMH.ACPN2 ---
Internal Medicine - PN: Subj *Date: 12/16/20 *Time: 16:20 Interval history: 85-year-old male patient sitting up in chair, reports he is feeling good denies any chest pain or shortness of breath. Dressing clean dry and intact to left upper chest. Patient still alert and oriented to name only. Coronary carvedilol held due to blood pressures 80s to 90s/50s currently 115/73 heart rate 62. He is to receive 1 unit of packed red blood cells for low H/H Exam Vital signs and Labs for Last 24 Hours: Temp Pulse Resp BP Pulse Ox 98.6 F 60 18 95/45 L 93 L 12/16/20 04:00 12/16/20 06:00 12/16/20 06:00 12/16/20 06:00 12/16/20 06:00 I & O for Last 24 hours: Intake & Output 12/13/20 12/14/20 12/15/20 12/16/20 23:59 23:59 23:59 23:59 Intake Total 1020 / 1020 120 / 220 760 / 1020 260 / 260 Output Total 300 / 300 750 / 750 500 / 502 2 / 2 Balance 720 / 720 -630 / -530 260 / 518 258 / 258 Weight 168 lb 167 lb 1 oz 165 lb 7 oz 165 lb 6.993 oz Microbiology Reports for the Last 24 Hours: Microbiology 12/10/20 07:40 Blood Blood Culture - Final NO GROWTH AFTER 5 DAYS - Constitutional no acute distress - *Routine HEENT Exam Head: Present: normocephalic Eye: Present: EOMI ENT: Present: mucous membranes moist - *Routine Respiratory Exam Present: CTA bilaterally. Absent: accessory muscle use - *Routine Cardiovascular Exam Present: RRR. Absent: bradycardia - *Routine Abdominal Exam Present: soft, normoactive bowel sounds. Absent: tenderness, firm - *Routine Extremities Exam Present: full ROM, pulses intact. Absent: cyanosis, clubbing, calf tenderness - *Routine Skin Exam Present: dry, warm, jaundice, wounds. Absent: erythema Comments: Drsg L upper chest C/D/I - *Routine Neurological Exam Present: alert, altered mental status - Routine Psychiatric Exam Present: normal affect, cooperative Assessment and Plan (1) NSTEMI (non-ST elevated myocardial infarction) Status: Acute Category: Medical Code(s): I21.4 - Non-ST elevation (NSTEMI) myocardial infarction (2) Diabetes mellitus type 2 in nonobese Status: Acute Category: Medical Code(s): E11.9 - Type 2 diabetes mellitus without complications (3) CKD (chronic kidney disease) stage 4, GFR 15-29 ml/min Status: Acute Category: Medical Code(s): N18.4 - Chronic kidney disease, stage 4 (severe) (4) Cardiac murmur, unspecified Status: Acute Category: Medical Code(s): R01.1 - Cardiac murmur, unspecified (5) Hypoxemia Status: Acute Category: Medical Code(s): R09.02 - Hypoxemia (6) Elevated brain natriuretic peptide (BNP) level Status: Acute Category: Medical Code(s): R79.89 - Other specified abnormal findings of blood chemistry (7) Pulmonary infiltrate in left lung on CXR Status: Acute Category: Medical Code(s): R91.8 - Other nonspecific abnormal finding of lung field (8) Ischemic cardiomyopathy Status: Acute Category: Medical Code(s): I25.5 - Ischemic cardiomyopathy (9) Acute systolic CHF (congestive heart failure), NYHA class 3 Status: Acute Category: Medical Code(s): I50.21 - Acute systolic (congestive) heart failure (10) Cardiac arrest Status: Acute Category: Medical Code(s): I46.9 - Cardiac arrest, cause unspecified (11) Ventricular fibrillation seen on monitor worker Status: Acute Category: Medical Code(s): I49.01 - Ventricular fibrillation (12) Ventricular tachycardia seen on monitor worker Status: Acute Category: Medical Code(s): I47.2 - Ventricular tachycardia (13) Anemia Status: Acute Category: Medical Code(s): D64.9 - Anemia, unspecified - Assessment and plan all Dx Assessment and Plan for all problems:: Rounded with Dr. Crenshaw, all all orders per Dr. Crenshaw: 1. Transfuse 1 unit of packed red blood cells 2. Chest x-ray 3. Awaiting cardiology input
[2020-12-16 09:35] LABS: Basophils % 0.3 % (0.1-2.0); Eosinophils # 0.5 K/mm3 (0.0-0.4); Eosinophils % 5.1 % (0.1-12.0); Hematocrit 27.8 % (42.0-52.0); Hemoglobin 10.4 g/dL (14.1-18.0); Lymphocytes # 0.9 K/mm3 (0.7-4.5); Lymphocytes % 9.4 % (10-50); Mean Corpuscular HGB Conc 37.4 g/dL (31.8-35.4); Mean Corpuscular Hemoglobin 36.6 pg (27.0-31.2); Mean Corpuscular Volume 97.9 fl (80-94); Mean Platelet Volume 8.1 fl (7.4-10.4); Monocytes # 0.5 K/mm3 (0.1-1.0); Monocytes % 5.1 % (1.7-9.3); Neutrophils # 7.5 K/mm3 (1.8-7.8); Neutrophils % 80.1 % (37.0-80.0); Platelet Count 199 K/mm3 (142-424); Red Blood Count 2.84 M/mm3 (4.60-6.20); Red Cell Distribution Width 14.9 % (11.5-17.5); White Blood Count 9.3 K/mm3 (4.8-10.8)
--- NOTE | 2020-12-16 09:38 | ECG_ITS ---
APPROVED REPORT Exam: Resting ECG HR:60 bpm ECG Measurements Heart Rate 60 AXES IL 124 P 24 QRSd 108 QRS -1 QT 514 T 213 QTc 514 Conclusion Normal sinus rhythm [address] & T wave abnormality, unchanged from prior Prolonged QT Abnormal ECG Electronically signed by : Isaias Conner, 12/16/2020 20:55:41
--- NOTE | 2020-12-16 09:48 | HMH.PNCARD ---
Subjective Date: 12/16/20 Time: 09:48 Principal diagnosis: NSTEMI Interval history: 85-year-old white male sitting in bedside chair in no acute distress. Still with some general fatigue but notes he is improving. Blood pressure continues to be in the 90s systolic he denies dizziness at this time. Telemetry continues to show sinus rhythm or paced rhythm with capture. EKG today is atrial pacing with QT interval of 514 ms which appears visually consistent with yesterday's EKG. Exam Vital signs and Labs for Last 24 Hours: Temp Pulse Resp BP Pulse Ox 98.6 F 62 18 91/47 L 95 12/16/20 04:00 12/16/20 08:00 12/16/20 08:00 12/16/20 08:00 12/16/20 08:00 Laboratory Results - last 24 hr 12/16/20 09:10: WBC 9.3 D, RBC 2.84 L, Hgb 10.4 L, Hct 27.8 L, MCV 97.9 H, MCH 36.6 H, MCHC 37.4 H, RDW 14.9, Plt Count 199, MPV 8.1, Neut % (Auto) 80.1 H, Lymph % (Auto) 9.4 L, Carson % (Auto) 5.1, Eos % (Auto) 5.1, Baso % (Auto) 0.3, Neut # (Auto) 7.5, Lymph # (Auto) 0.9, Carson # (Auto) 0.5, Eos # (Auto) 0.5 H, Baso # (Auto) 0.0 I & O for Last 24 hours: Intake & Output 12/13/20 12/14/20 12/15/20 12/16/20 11:59 11:59 11:59 11:59 Intake Total 800 / 800 780 / 780 460 / 460 680 / 680 Output Total 850 / 850 750 / 750 502 / 502 Balance -50 / -50 780 / 780 -290 / -290 178 / 178 Weight 168 lb 167 lb 1 oz 165 lb 7 oz 165 lb 6.993 oz Microbiology Reports for the Last 24 Hours: Microbiology 12/10/20 07:40 Blood Blood Culture - Final NO GROWTH AFTER 5 DAYS - *Routine Respiratory Exam Present: CTA bilaterally - *Routine Cardiovascular Exam Present: RRR - *Routine Extremities Exam Absent: cyanosis, clubbing, edema - *Routine Neurological Exam Present: alert, oriented X3 Progress Note: A&P (1) NSTEMI (non-ST elevated myocardial infarction) Status: Acute Assessment and plan: JOCELYN to RCA, left main and LAD. Continue aspirin and Brilinta (2) Diabetes mellitus type 2 in nonobese Status: Acute (3) CKD (chronic kidney disease) stage 4, GFR 15-29 ml/min Status: Acute Assessment and plan: Improving after coronary revascularization and improved cardiac output. Labs pending today. (4) Cardiac murmur, unspecified Status: Acute (5) Hypoxemia Status: Acute (6) Elevated brain natriuretic peptide (BNP) level Status: Acute (7) Pulmonary infiltrate in left lung on CXR Status: Acute (8) Ischemic cardiomyopathy Status: Acute (9) Acute systolic CHF (congestive heart failure), NYHA class 3 Status: Acute (10) Cardiac arrest Status: Acute Assessment and plan: Status post V. fib arrest with CPR and cardioversion x2. Continue amiodarone 400 mg twice daily until 12/20/2020 then start 200 mg daily. (11) Ventricular fibrillation seen on radiation monitor Status: Acute (12) Ventricular tachycardia seen on radiation monitor Status: Acute (13) Anemia Status: Acute (14) Low blood pressure Status: Acute Assessment and plan: Symptomatic yesterday with dizziness. Improved today after holding diuretic therapy and discontinuing carvedilol therapy. Recommend continuing his irbesartan and will monitor fluid status and use diuretic therapy as needed. Assessment and Plan for All Diagnoses:: Blood pressure has improved. Coronary artery disease status post coronary stenting. Continue DAPT. V. fib arrest status post cardioversion and AICD implantation. Continue amiodarone therapy. Ischemic cardiomyopathy, continue ARB therapy with as needed diuretic therapy as needed. Hold off on carvedilol therapy at this time. Acute renal insufficiency, improving after coronary revascularization and improving cardiac output. Agree with discharge to rehab facility tomorrow if bed available and patient remains stable.
[2020-12-16 10:03] LABS: Chloride 102 mmol/L (98-107); Potassium 4.3 mmoL/L (3.5-5.1); Sodium 136 mmol/L (136-145)
[2020-12-16 10:05] LABS: Blood Urea Nitrogen 60 mg/dl (9-20); Creatinine Clearance Estimated 26 mL/min (50-200); Estimated Glomerular Filt Rate 27 ml/min (>60); GFR (African American) 33 ML/MIN (>60)
[2020-12-16 10:06] LABS: Alanine Aminotransferase 15 U/L (12-78); Albumin Level 3.6 g/dl (3.5-5.0); Albumin/Globulin Ratio 1.3 (1.1-1.8); Alkaline Phosphatase 62 U/L (38-126); Anion Gap 13.3 mEq/L (5-15); Aspartate Amino Transferase 30 U/L (17-59); Bilirubin,Total 0.7 mg/dl (0.2-1.3); Calcium 8.7 mg/dl (8.4-10.2); Carbon Dioxide 25 mmol/L (22.0-30.0); Globulin 2.8 g/dL (1.3-3.2); Glucose 202 mg/dl (74-100); Total Protein,Serum 6.4 g/dl (6.3-8.2)
--- NOTE | 2020-12-16 13:39 | PC.NURSE ---
Per Dr Crenshaw hold unit of PRBC's ordered as Hgb is 10.4; Ro in the lab notified;
--- NOTE | 2020-12-16 15:27 | PC.NURSE ---
Pt is alert to self. He has ambulated to the bathroom with 1 assist and tolerates well. He has been up to the chair the majority of the shift. He had 1 dose of 30mg toradol IV this morning for chest soreness and he reported relief on reassessment. Giraldo was removed this afternoon and urinal now at bedside. Pt instructed on use and verbalized understanding. Blood pressure is still low, cardiology aware and meds being adjusted. Pt reports occasional dizziness. He has been NSR to paced on telemetry. Expiratory rhonchi noted in RLL. O2 remains in the upper 90's on RA. Pt has no questions or complaints to report at this time.
[2020-12-17] VITALS (12 sets, daily range): BP systolic 78–110; BP diastolic 35–54; PULSE 60–70; RESP 16–24; TEMP 36.6–36.9; O2SAT 92–100; BMI 23.2
--- NOTE | 2020-12-17 00:10 | PC.NURSE ---
2100 COURTESY ROUND PT VOICED NO NEEDS AT THIS TIME. TRASH AND LINENS EMPTIED
--- NOTE | 2020-12-17 03:20 | PC.NURSE ---
received in report that pt has not voided since sandoval was dc. pt was approached by FELICIANO Fitzpatrick and asked if he needed to void. per pt he does not need to. pt had approx 1000ml of fluid in in 24 hr period. will monitor for distension and discomfort.
--- NOTE | 2020-12-17 04:30 | PC.NURSE ---
Pt assisted to use the urinal, pt reports feeling the urge to urinate but could not. Will retry at a later time
[2020-12-17 06:17] LABS: Basophils % 0.4 % (0.1-2.0); Eosinophils # 0.3 K/mm3 (0.0-0.4); Eosinophils % 5.5 % (0.1-12.0); Hematocrit 25.9 % (42.0-52.0); Lymphocytes # 0.9 K/mm3 (0.7-4.5); Lymphocytes % 13.8 % (10-50); Mean Corpuscular HGB Conc 34.4 g/dL (31.8-35.4); Mean Corpuscular Hemoglobin 33.1 pg (27.0-31.2); Mean Corpuscular Volume 96.3 fl (80-94); Mean Platelet Volume 7.7 fl (7.4-10.4); Monocytes # 0.4 K/mm3 (0.1-1.0); Monocytes % 6.1 % (1.7-9.3); Neutrophils # 4.7 K/mm3 (1.8-7.8); Neutrophils % 74.3 % (37.0-80.0); Platelet Count 178 K/mm3 (142-424); Red Blood Count 2.69 M/mm3 (4.60-6.20); Red Cell Distribution Width 15.2 % (11.5-17.5); White Blood Count 6.3 K/mm3 (4.8-10.8)
[2020-12-17 06:29] LABS: Hemoglobin 9.3 g/dL (14.1-18.0)
[2020-12-17 06:30] LABS: Anion Gap 9.6 mEq/L (5-15); Calcium 8.5 mg/dl (8.4-10.2); Carbon Dioxide 26 mmol/L (22.0-30.0); Chloride 103 mmol/L (98-107); Creatinine Clearance Estimated 26 mL/min (50-200); Estimated Glomerular Filt Rate 27 ml/min (>60); GFR (African American) 33 ML/MIN (>60); Glucose 166 mg/dl (74-100); Potassium 4.6 mmoL/L (3.5-5.1); Sodium 134 mmol/L (136-145)
[2020-12-17 06:38] LABS: Blood Urea Nitrogen 77 mg/dl (9-20)
--- NOTE | 2020-12-17 08:48 | HMH.DCSUM ---
General - General Admission date:: 12/10/20 Discharge date: 12/17/20 HPI HPI: 85-year-old male presented to ED with dyspnea with hypoxia. Patient states he felt well throughout the day but then after putting his dog to sleep he began having some dyspnea that was little bit worse when he laid flat. On arrival to ED, patient had saturations around 75% on room air. On arrival, patient transition to nasal cannula for a short trial and had O2 saturations between 84 and 86%, was placed back on bipap. Patient admitted for further evaluation. Hospital Course Hospital Course: 85-year-old male presented to ED with dyspnea with hypoxia. Patient states he felt well throughout the day but then after putting his dog to sleep he began having some dyspnea that was little bit worse when he laid flat. On arrival to ED, patient had saturations around 75% on room air. On arrival, patient transition to nasal cannula for a short trial and had O2 saturations between 84 and 86%, was placed back on bipap. Patient admitted for further evaluation. 12/10/20 CXR: IMPRESSION: Small right effusion. Patchy left perihilar and left lower lobe infiltrate. Dictated by: Freedom 12/10/20 ECHO: Conclusion 1. Mildly enlarged left atrium, dilated left ventricle, severely reduced left ventricular systolic function, visually estimated ejection fraction 30% with multiple segmental wall motion abnormality suggestive of multivessel coronary artery disease. Diastolic parameters are inconclusive. Endocardial surfaces are poorly visualized. 2. Thickened and calcified aortic valve without aortic stenosis, there is mild aortic insufficiency. 3. Moderate mitral and mild tricuspid regurgitation. 4. No significant pericardial effusion noted. Electronically signed by : Rhys Canas, 12/13/20 Renal Artery Duplex: Conclusion Study suggests no evidence of stenosis of the bilateral renal arteries. 1.5 X 1.4cm cyst of thge lower pole of the left kidney. Gallstone seen gallbladder. Right pleural effusion Electronically signed by : Anil Loja, 12/14/20 CXR, Device Placement: IMPRESSION 1. Successful pocket formation for AICD. 2. Successful placement of atrial sensing and pacing coil into the right atrial appendage. 3. Successful placement of a ventricular sensing, pacing and shocking coil in the right ventricular apex. 4. Successful permanent AICD placement. PLAN 1. Postop wound care. Electronically signed by : [place], 12/16/20 CXR: IMPRESSION: Improvement of CHF. Bibasilar edema or infiltrate/atelectatic changes noted. Prior pacemaker placement. Dictated by: Freedom, 12/11/20 Lucy Parisi: ANGIOGRAPHIC RESULTS The left main artery Has an ostial eccentric greater than 50% stenosis The left anterior descending artery Has a critical concentric 90% proximal stenosis followed by mid vessel 30% stenoses The circumflex artery Is a nondominant vessel with mild 10 to 20% stenosis in the proximal to mid segment. The distal or terminal obtuse marginal artery approximately 2 mm in diameter and subtotally occluded proximally supplying what appears to be a small distal obtuse marginal artery The right coronary artery Is a large dominant vessel and has proximal 50% followed by a 99% mid vessel stenosis followed by a distal 80% stenosis immediately proximal to the posterior descending artery The WALDEN ventriculogram reveals Not performed The left ventricular end-diastolic pressure Not measured IMPRESSION Critical coronary artery disease as described above almost certainly accounting for the severe left ventricular dysfunction and dilated ventricle as seen by echo Successful stenting of the proximal to mid dominant right coronary artery critical disease reduced to 0% withdrawn drug-eluting stent with successful stenting of the distal dominant right coronary artery severe disease reduced to 0% with 1 drug-eluting stent S
--- NOTE | 2020-12-17 09:42 | PC.NURSE ---
Pt has rested well this shift. sandoval cath was dc at approx 1500 on . pt was finally able to void this am at 0400. lung sounds are diminished bowel sounds are active in all quad.s nad noted. pt is slightly confused at times. bed safety in use.
--- NOTE | 2020-12-17 09:45 | PC.NURSE ---
notified Al Matute of notification results of BUN 77 Crea 2.30 at 0750. no new orders.
--- NOTE | 2020-12-17 09:46 | HMH.PNCARD ---
Subjective Date: 12/17/20 Time: 09:00 Principal diagnosis: NSTEMI Interval history: 85-year-old male who presented to [facility] with Non-STEMI on 12/10/20. Pt has underwent LHC. Critical coronary artery disease as described above almost certainly accounting for the severe left ventricular dysfunction and dilated ventricle as seen by echo Successful stenting of the proximal to mid dominant right coronary artery critical disease reduced to 0% withdrawn drug-eluting stent with successful stenting of the distal dominant right coronary artery severe disease reduced to 0% with 1 drug-eluting stent Successful stenting the proximal LAD critical disease reduced to 0% with 1 drug-eluting stent Successful stenting of the ostial left main artery severe disease reduced to 0% with 1 drug-eluting stent PLAN 1. Brilinta and aspirin 2. I anticipate patient's ejection fraction will improve over the near distant future. Patient's myocardium was almost certainly hibernating based on the critical severity of the stenosis. Now the blood has been restored the hibernation should improve and anticipate the ejection fraction will improve 3. Continue monitoring patient for at least the next 48 to 72 hours in house keeping a close eye on the creatinine. 4. I also anticipate the creatinine will improve with improvement of the LV function 5. Would recommend renal duplex to evaluate for possible renal artery stenosis 6. Echocardiogram Sunday 7. Consider LifeVest if patient has the cognitive skills to appropriately respond to the vest 8. Beta-blockers should be started. While monitoring the creatinine level is reasonable to start patient on an DOROTA inhibitor if the renal duplex does not suggest renal artery stenosis 9. LDL less than 55 10. Avoidance of tobacco products 11. Cardiac rehabilitation Pt denies cheest pain, tightness or pressure. Denies shortness of breath with exertion. No swelling of the lower extremities noted. Blood pressure has improved. While admitted, pt did go into V fib arrest status post cardioversion and AICD Implantation. Amiodarone was initiated. Ischemic CMP noted. Will continue ARB therapy and diuretics as needed. Acute renal insufficiency noted. Creatinine 2.30. This is improving after coronary revascularization and improving cardiac output. Pt will be going to Nursing rehab due to post LHC and CMP. Exam Vital signs and Labs for Last 24 Hours: Temp Pulse Resp BP Pulse Ox 97.8 F 68 16 108/50 L 97 12/17/20 08:23 12/17/20 08:00 12/17/20 06:00 12/17/20 06:00 12/17/20 06:00 Laboratory Results - last 24 hr 12/16/20 09:10: Sodium 136, Potassium 4.3, Chloride 102, Carbon Dioxide 25, Anion Gap 13.3, BUN 60 H, Creatinine 2.30 H, Estimated Creat Clear 26, Estimated GFR 27 L, Est GFR ( Amer) 33 L, Glucose 202 H, Calcium 8.7, Total Bilirubin 0.7, AST 30, ALT 15, Alkaline Phosphatase 62, Total Protein 6.4, Albumin 3.6, Globulin 2.8, Albumin/Globulin Ratio 1.3 12/16/20 11:12: Blood Type O Positive, Antibody Screen Negative, Crossmatch (AHG) See Detail 12/16/20 12:20: Blood Type Confirm O Positive 12/17/20 05:50: WBC 6.3 D, RBC 2.69 L, Hgb 9.3 L D, Hct 25.9 L, MCV 96.3 H, MCH 33.1 H, MCHC 34.4, RDW 15.2, Plt Count 178, MPV 7.7, Neut % (Auto) 74.3, Lymph % (Auto) 13.8, Cook % (Auto) 6.1, Eos % (Auto) 5.5, Baso % (Auto) 0.4, Neut # (Auto) 4.7, Lymph # (Auto) 0.9, Cook # (Auto) 0.4, Eos # (Auto) 0.3, Baso # (Auto) 0.0 12/17/20 05:50: Sodium 134 L, Potassium 4.6, Chloride 103, Carbon Dioxide 26, Anion Gap 9.6, BUN 77 H D, Creatinine 2.30 H, Estimated Creat Clear 26, Estimated GFR 27 L, Est GFR ( Amer) 33 L, Glucose 166 H, Calcium 8.5 I & O for Last 24 hours: Intake & Output 12/14/20 12/15/20 12/16/20 12/17/20 23:59 23:59 23:59 23:59 Intake Total 120 / 220 760 / 1020 980 / 980 Output Total 750 / 750 500 / 502 2 / 2 200 / 200 Balance -630 / -530 260 / 518 978 / 978 -200 / -200 Pantera
--- NOTE | 2020-12-17 11:09 | HMH.PHACLD ---
Armond Mena has received discharge medication counseling on the following medications: NEW MEDICATIONS: IRBESARTAN, ATORVASTATIN, BRILINTA CONTINUE MEDICATIONS: ASPIRIN PATIENT IS NOT RECEIVING A BETA PERI AT THIS TIME DUE TO LOW BLOOD PRESSURE. CARDIOLOGY WILL ADDRESS THIS AT FOLLOW-UP IN 1 WEEK.
--- NOTE | 2020-12-17 11:44 | PC.NURSE ---
Spoke w/ Loreta in lab, states it will be another 15 minutes before test is back.
--- NOTE | 2020-12-17 12:32 | PC.NURSE ---
Called detailed report to Yessenia @ [facility] @ this time
--- NOTE | 2020-12-17 13:08 | PC.NURSE ---
Per Ro Lara, pt's family to come and get him to take him to long term
== END 2020-12-17 14:00 | DRG 222 ==
LOC: ER 02:01 → 2ND 05:56
PROVIDERS: Emergency Medicine; Internal Medicine; Nurse Practitioner Family; Physician Assistant; Admitting Provider Family Medicine; Emergency Provider Emergency Medicine; Visit Provider Family Medicine
PROC: 027236Z Dilation of Coronary Artery, Three Arteries with Three Drug-eluting Intraluminal Devices, Percutaneous Approach (ICD-10-PCS; principal; 2020-12-11 09:20)
PROC: 0JH609Z Insertion of Cardiac Resynchronization Defibrillator Pulse Generator into Chest Subcutaneous Tissue and Fascia, Open Approach (ICD-10-PCS; CPT 33249; principal; 2020-12-14 14:45)
DX: I21.4 Non-ST elevation (NSTEMI) myocardial infarction (principal); I50.23 Acute on chronic systolic (congestive) heart failure; I49.01 Ventricular fibrillation; I46.9 Cardiac arrest, cause unspecified; N18.4 Chronic kidney disease, stage 4 (severe); I13.10 Hypertensive heart and chronic kidney disease without heart failure, with stage 1 through stage 4 chronic kidney disease, or unspecified chronic kidney disease; Z87.891 Personal history of nicotine dependence; E11.22 Type 2 diabetes mellitus with diabetic chronic kidney disease; I25.5 Ischemic cardiomyopathy; Z79.82 Long term (current) use of aspirin; Z79.84 Long term (current) use of oral hypoglycemic drugs; Z79.899 Other long term (current) drug therapy; I25.10 Atherosclerotic heart disease of native coronary artery without angina pectoris
CPT/HCPCS: 33249; 36415; 71045; 80048; 80053; 82803; 83605; 83735; 83880; 84145; 84484; 85007; 85025; 85347; 85730; 86328; 86850; 87040; 87581; 87633; 87798; 92928; 92960; 93005; 93306; 93308; 93458; 93976; 96365; 96375; 97110; 97116; 97161; 97165; 97530; 99152; 99153; 99285; C1721; C1725; C1769; C1876; C1894; C1895; C1898; C9600; J0282; J1644; J2405; J7060; Q9967; U0003

== ENCOUNTER 2020-12-31 17:11 | Inpatient (IN) | payer MEDICARE, MEDICAID, SELFPAY ==
--- NOTE | 2020-12-31 17:10 | ECG_ITS ---
APPROVED REPORT Exam: Resting ECG HR:80 bpm ECG Measurements Heart Rate 80 AXES NE 180 P 44 QRSd 98 QRS 2 QT 410 T -13 QTc 472 Conclusion Normal sinus rhythm Nonspecific T wave abnormality Prolonged QT Abnormal ECG Electronically signed by : Isaias Conner, 01/01/2021 08:50:42
[2020-12-31 17:14] VITALS: BP 104/46; PULSE 77; RESP 22; TEMP 36.6; O2SAT 98; BMI 26.6
--- NOTE | 2020-12-31 17:55 | XR_ITS ---
PROCEDURE: XR CHEST PORTABLE CLINICAL HISTORY: cough COMPARISON: CR XR CHEST PORTABLE from 12/13/2020 CR XR CHEST PORTABLE from 12/14/2020 CR XR CHEST PORTABLE from 12/16/2020 FINDINGS: Bipolar pacemaker is present from left subclavian approach. Normal heart size. The lungs are clear without infiltrates, suspicious nodules, or pleural effusions. No acute bony abnormalities. IMPRESSION: No acute findings. Dictated by: Anil Loja MD 01/01/2021 08:10 Anil Loja MD in [place] 01/01/2021 08:10
--- NOTE | 2020-12-31 17:56 | CT_ITS ---
PROCEDURE: CT HEAD/BRAIN WO CON CLINICAL INDICATION: ams Altered mental status, altered level of consciousness, confusion, disorientation the COMPARISON: No exams were available for comparison TECHNIQUE: Axial images obtained. All CT scans at the facility use one or more dose reduction, viz: automated exposure control, ma/kV adjustment per patient size (including targeted exams where dose is matched to indication, i.e. head), or iterative reconstruction technique. FINDINGS: No midline shift, mass effect, intracranial hemorrhage, hydrocephalus, or extra-axial fluid collection is evident. There is generalized atrophy with hypoattenuation of the periventricular white matter consistent with microangiopathic changes. The calvarium has an unremarkable appearance. No mastoid effusion. No sinus air-fluid level. IMPRESSION: No acute intracranial finding Dictated by: Anil Loja MD 01/01/2021 10:10 Anil Loja MD in [facility] 01/01/2021 10:10
--- NOTE | 2020-12-31 18:00 | PC.NURSE ---
glucose on truck 133
[2020-12-31 18:02] LABS: Basophils % 0.6 % (0.1-2.0); Eosinophils # 0.2 K/mm3 (0.0-0.4); Eosinophils % 4.7 % (0.1-12.0); Hematocrit 26.5 % (42.0-52.0); Hemoglobin 8.8 g/dL (14.1-18.0); Lymphocytes # 0.6 K/mm3 (0.7-4.5); Lymphocytes % 12.4 % (10-50); Mean Corpuscular HGB Conc 33.3 g/dL (31.8-35.4); Mean Corpuscular Volume 99.1 fl (80-94); Mean Platelet Volume 7.8 fl (7.4-10.4); Monocytes # 0.3 K/mm3 (0.1-1.0); Monocytes % 6.6 % (1.7-9.3); Neutrophils # 3.5 K/mm3 (1.8-7.8); Neutrophils % 75.7 % (37.0-80.0); Platelet Count 190 K/mm3 (142-424); Red Blood Count 2.67 M/mm3 (4.60-6.20); Red Cell Distribution Width 15.1 % (11.5-17.5); White Blood Count 4.6 K/mm3 (4.8-10.8)
[2020-12-31 18:07] LABS: Alanine Aminotransferase 13 U/L (12-78); Albumin Level 3.7 g/dl (3.5-5.0); Albumin/Globulin Ratio 1.5 (1.1-1.8); Alkaline Phosphatase 79 U/L (38-126); Anion Gap 12.8 mEq/L (5-15); Aspartate Amino Transferase 25 U/L (17-59); Bilirubin,Total 0.3 mg/dl (0.2-1.3); Blood Urea Nitrogen 64 mg/dl (9-20); Calcium 8.8 mg/dl (8.4-10.2); Carbon Dioxide 24 mmol/L (22.0-30.0); Chloride 108 mmol/L (98-107); Creatinine Clearance Estimated 20 mL/min (50-200); Estimated Glomerular Filt Rate 19 ml/min (>60); GFR (African American) 23 ML/MIN (>60); Globulin 2.4 g/dL (1.3-3.2); Glucose 55 mg/dl (74-100); Potassium 4.8 mmoL/L (3.5-5.1); Sodium 140 mmol/L (136-145); Total Protein,Serum 6.1 g/dl (6.3-8.2)
[2020-12-31 18:10] LABS: Activated Partial Thrombo Time 24.4 seconds (23.6-34.0)
[2020-12-31 18:11] LABS: INR 1.11 (0.9-1.1); Prothrombin Time 12.2 seconds (9.4-11.8)
--- NOTE | 2020-12-31 18:22 | HMH.EDWEAK ---
ED Disposition Clinical Impression: CKD (chronic kidney disease) stage 4, GFR 15-29 ml/min, Hypoglycemia, Generalized weakness Anemia Qualifiers: Anemia type: due to chronic kidney disease Chronic kidney disease stage: stage 3 (moderate) Chronic kidney disease stage 3 subtype: stage 3b (GFR 30-44) Qualified Code(s): N18.32 - Chronic kidney disease, stage 3b; D63.1 - Anemia in chronic kidney disease Disposition: Admitted As Inpatient Condition on Discharge: Fair Referrals: PCP,No [Primary Care Provider] - - Critical Care Critical Care Time: No Attestation: On 12/31/20, the high probability of a clinically significant, sudden or life threatening deterioration of the following system(s) required my full and direct attention, intervention and personal management. The time I documented below is in addition to time spent performing reported procedures but includes the following listed in this critical care notation. Medical Decision Making - Medical Records Medical records reviewed: Yes: I reviewed the patient's medical records. - Shant Inquiry Pt receiving controlled substance: No Vital Signs: 12/31/20 17:14 Temperature 97.8 F Temperature Source Oral Pulse Rate [Left Radial] 77 Respiratory Rate 22 Blood Pressure [Right Arm] 104/46 L Blood Pressure Mean [Right Arm] 65 Blood Pressure Source [Right Arm] Automatic Cuff Blood Pressure Position [Right Arm] Sitting 02 Sat by Pulse Oximetry 98 - Lab Data Lab Results 12/31/20 17:38: WBC 4.6 L, RBC 2.67 L, Hgb 8.8 L, Hct 26.5 L, MCV 99.1 H, MCH 33.0 H, MCHC 33.3, RDW 15.1, Plt Count 190, MPV 7.8, Neut % (Auto) 75.7, Lymph % (Auto) 12.4, [place]eth % (Auto) 6.6, Eos % (Auto) 4.7, Baso % (Auto) 0.6, Neut # (Auto) 3.5, Lymph # (Auto) 0.6 L, [place]ud[place]eth # (Auto) 0.3, Eos # (Auto) 0.2, Baso # (Auto) 0.0 12/31/20 17:38: PT 12.2 H, INR 1.11 H 12/31/20 17:38: Sodium 140, Potassium 4.8, Chloride 108 H, Carbon Dioxide 24, Anion Gap 12.8, BUN 64 H, Creatinine 3.20 H, Estimated Creat Clear 20, Estimated GFR 19 L*, Est GFR ( Amer) 23 L, Glucose 55 L, Calcium 8.8, Total Bilirubin 0.3, AST 25, ALT 13, Alkaline Phosphatase 79, Total Protein 6.1 L, Albumin 3.7, Globulin 2.4, Albumin/Globulin Ratio 1.5 12/31/20 17:38: APTT 24.4 Result diagrams: 12/31/20 17:38 12/31/20 17:38 Orders (Tests/Meds): ED MEDICATIONS Generic Name Dose Route Start Last Admin Trade Name Freq PRN Reason Stop Dose Admin Sodium Chloride 250 mls @ 25 mls/hr 12/31/20 18:15 Sod Chlor 0.9% 250ml Bag IV 01/01/21 18:14 .Q10H HEMANTH Dextrose/Water 500 mls @ 50 mls/hr 12/31/20 18:30 Dextrose 10% In Water 500ml IV 01/30/21 18:29 .Q10H HEMANTH ORDERS Category Date Time Status Transfuse RBC's [Red Blood Cells] Stat K 12/31/20 18:09 Ordered Type and Screen Stat BBK 12/31/20 18:[address] head/brain wo con Stat Cat Scan 12/31/20 17:56 Taken XR chest portable Stat Exams 12/31/20 17:55 Taken Covid-19 IgG/IgM ([facility]) Routine Lab 12/31/20 17:38 Received Covid-19 Nasal PCR ([facility]) Routine Lab 12/31/20 18:30 Received Urinalysis and Microscopic Stat Lab 12/31/20 17:55 Ordered - Radiology Data #1 Image(s): Chest Image Reviewed: Yes I reviewed the patient's radiology results Preliminary Findings: Normal/NAD, No Fracture Seen - CT Data CT Scan: Head Time Received: 18:[address] Reviewed: Yes: I have reviewed the patient's CT results Findings Narrative: chronic changes - ECG Data Tracing #1 Normal ventricular rate 80 bpm, LA interval 180 ms, prolonged QTC. Sinus rhythm with nonspecific ST changes, prolonged history. ECG initial impression date: 12/31/20 ECG initial impression time: 17:12 - Reevaluation(s) Time: 18:38 Reevaluation #1: On reevaluation, patient appears to be at baseline. He does have a low hemoglobin. He will require blood transfusion. Patient also has evidence of some hypoglycemia. Patient was started on D10 drip. Patient be admitted to the
[2020-12-31 18:42] LABS: Adenovirus,PCR Not Detected (NotDetected); Bordetella Pertussis Not Detected (NotDetected); Chlamydophila Pneumoniae, PCR Not Detected (NotDetected); Coronavirus 19, PCR Not Detected (NotDetected); Coronavirus 229E Not Detected (NotDetected); Coronavirus NL63 Not Detected (NotDetected); Coronavirus OC43 Not Detected (NotDetected); Coronovirus HKU1,PCR Not Detected (NotDetected); Human Metapneumovirus Not Detected (NotDetected); Influenza A, PCR Not Detected (NotDetected); Influenza AH1, 2009 Not Detected (NotDetected); Influenza AH1, PCR Not Detected (NotDetected); Influenza AH3,PCR Not Detected (NotDetected); Influenza B, PCR Not Detected (NotDetected); Mycoplasma Pneumoniae, PCR Not Detected (NotDetected); Parainfluenza 1, PCR Not Detected (NotDetected); Parainfluenza 2, PCR Not Detected (NotDetected); Parainfluenza 3, PCR Not Detected (NotDetected); Parainfluenza 4, PCR Not Detected (NotDetected); Respiratory Syncytial Virus Not Detected (NotDetected); Rhinovirus/Enterovirus Not Detected (NotDetected)
[2020-12-31 18:45] LABS: Coronavirus 19 IgG Antibody Negative (Negative); Coronavirus 19 IgM Antibody Negative (Negative)
[2020-12-31 22:10] VITALS: BP 105/76; PULSE 77; RESP 14; TEMP 36.7; O2SAT 95
--- NOTE | 2020-12-31 22:12 | PC.NURSE ---
Pt arrived to floor
[2020-12-31 22:26] VITALS: BP 100/43; PULSE 70; RESP 17; TEMP 36.9; O2SAT 100; BMI 22.1
--- NOTE | 2020-12-31 23:09 | PC.NURSE ---
Left message on sister's answering machine phone to call [facility] so consent for blood can be obtained.
[2020-12-31 23:54] LABS: Glucose,Random 178 mg/dL (74-100)
[2021-01-01] VITALS (15 sets, daily range): BP systolic 112–145; BP diastolic 45–87; PULSE 63–100; RESP 14–19; TEMP 36.5–36.8; O2SAT 97–100; BMI 22.4
[2021-01-01 02:25] LABS: POC Glucose,Bedside 180 (70-110)
--- NOTE | 2021-01-01 03:41 | PC.NURSE ---
Blood Transfusion was started at 0015 and completed at 0300. Verified with Gilberto Simms RN.
[2021-01-01 05:53] LABS: Basophils % 0.5 % (0.1-2.0); Eosinophils # 0.3 K/mm3 (0.0-0.4); Eosinophils % 6.4 % (0.1-12.0); Hemoglobin 9.5 g/dL (14.1-18.0); Lymphocytes # 0.8 K/mm3 (0.7-4.5); Lymphocytes % 17.8 % (10-50); Mean Corpuscular HGB Conc 33.2 g/dL (31.8-35.4); Mean Corpuscular Hemoglobin 32.3 pg (27.0-31.2); Mean Corpuscular Volume 97.5 fl (80-94); Mean Platelet Volume 8.8 fl (7.4-10.4); Monocytes # 0.3 K/mm3 (0.1-1.0); Monocytes % 5.8 % (1.7-9.3); Neutrophils # 3.1 K/mm3 (1.8-7.8); Neutrophils % 69.5 % (37.0-80.0); Platelet Count 161 K/mm3 (142-424); Red Blood Count 2.92 M/mm3 (4.60-6.20); Red Cell Distribution Width 15.5 % (11.5-17.5); White Blood Count 4.5 K/mm3 (4.8-10.8)
[2021-01-01 05:54] LABS: Hematocrit 28.5 % (42.0-52.0)
[2021-01-01 05:56] LABS: POC Glucose,Bedside 61 (70-110)
[2021-01-01 06:03] LABS: Alanine Aminotransferase 12 U/L (12-78); Albumin Level 3.4 g/dl (3.5-5.0); Albumin/Globulin Ratio 1.4 (1.1-1.8); Alkaline Phosphatase 78 U/L (38-126); Anion Gap 11.2 mEq/L (5-15); Aspartate Amino Transferase 24 U/L (17-59); Bilirubin,Total 0.7 mg/dl (0.2-1.3); Blood Urea Nitrogen 61 mg/dl (9-20); Calcium 8.8 mg/dl (8.4-10.2); Carbon Dioxide 25 mmol/L (22.0-30.0); Chloride 108 mmol/L (98-107); Creatinine Clearance Estimated 22 mL/min (50-200); Estimated Glomerular Filt Rate 23 ml/min (>60); GFR (African American) 27 ML/MIN (>60); Globulin 2.4 g/dL (1.3-3.2); Glucose 55 mg/dl (74-100); Potassium 4.2 mmoL/L (3.5-5.1); Sodium 140 mmol/L (136-145); Total Protein,Serum 5.8 g/dl (6.3-8.2)
--- NOTE | 2021-01-01 06:42 | PC.NURSE ---
Pt tolerated 1 unit of PRBC's. Is currently resting in bed. FSBS obtained this AM resulting 61. called for clarification of maintenance fluids. DC D10 @ 50 ml/hr. Infuse NS @ 50 ml/hr. Protonix gtt continues to infuse @ 10 ml/hr. Labs have imrpoved this AM. No other concerns. Will continue to monitor.
--- NOTE | 2021-01-01 09:22 | HMH.HP ---
*Admission Date: 12/31/20 *Chief complaint: weakness *History of present illness: this pt was sent from [facility] for weakness with renal failure and anemia-pt was seen in the ed - is a 85-year-old male presented to the emergency department with confusion. Patient was sent over from nursing facility. Apparently he had some low and high blood sugars today that have been inconsistent. The patient was recently admitted for NSTEMI and had a cardiac catheterization. He does have a longstanding history of chronic anemia, however he is still on antiplatelets. Patient denies any symptoms at this time. However on my examination he does appear slightly confused to answering some questions. He denies any chest pain or shortness of breath. Abdominal pain or vomiting. No diarrhea. No headache or change in vision. No focal weakness. No fevers or chills. [facility] History I have reviewed the patient's past medical history: Yes Medical History: Reports:: Arrhythmia, Coronary Artery Disease, Diabetes Mellitus Type 2, Heart Murmur, Hyperlipidemia, Hypertension, Internal Pacemaker, Myocardial Infarction Denies:: Cancer, Diabetes Mellitus Type 1, MRSA *Have you ever received a pneumonia vaccine?: No *Have you received a flu vaccine this season?: Yes Other Surgeries: Yes: Cardiac Surgery, Pacemaker Amputation: No Fractures: No - *Social History Smoking Status: Current some day smoker Tobacco Type: cigarettes # Packs/Day (cigarettes): 1 Alcohol Intake: never *Occupational Status:: retired *Travel in the last 8 weeks: None Family Hx:: Unable to obtain Review of Systems - Review of Systems Review of systems:: pertinent systems reviewed and negative unless documented below - Constitutional Reports weakness, Denies headache(s) - Eyes Denies change in vision - ENT Denies sore throat - *Cardiovascular Denies chest pain at rest, Denies shortness of breath - *Respiratory Denies cough - *Gastrointestinal Denies abdominal pain - *Genitourinary Denies blood in urine - *Musculoskeletal Denies joint pain - Integumentary/Breasts Denies rash - *Neurologic Reports weakness, Denies seizure-like activity, Denies localized weakness, Denies headache(s) - Psychiatric Denies anxiety Meds Home Medications Medication Instructions Recorded Confirmed Type glipiZIDE [Glipizide] 10 mg PO DAILY 02/03/19 12/31/20 History Aspirin [Aspirin 81mg EC Tab] 81 mg PO DAILY 12/10/20 12/31/20 History Ferrous Sulfate [Ferrous Sulfate 325 mg PO DAILY 12/10/20 12/31/20 History 325mg Tablet] Finasteride [Proscar 5mg Tablet] 5 mg PO DAILY 12/10/20 12/31/20 History Pantoprazole Sodium 40 mg PO DAILY 12/10/20 12/31/20 History Terazosin HCl [Hytrin 1mg Capsule] 1 mg PO DAILY 12/10/20 12/31/20 History acetaminophen 500 mg tablet 1,000 mg PO Q6H PRN tab 12/27/20 12/31/20 History sennosides 8.6 mg tablet 17.2 mg PO DAILY 12/27/20 12/31/20 History Amiodarone HCl [Amiodarone 100mg 200 mg PO DAILY 12/31/20 12/31/20 History Tab] Atorvastatin Calcium [Lipitor 40mg 40 mg PO HS 12/31/20 12/31/20 History Tablet*] Furosemide [Lasix 20mg tablet] 20 mg PO DAILY 12/31/20 12/31/20 History Irbesartan 37.5 mg PO DAILY 12/31/20 12/31/20 History Spironolactone [Aldactone 25mg 25 mg PO DAILY 12/31/20 12/31/20 History Tab] Ticagrelor [Brilinta 90mg 90 mg PO BID 12/31/20 12/31/20 History Tablet] Zinc Oxide [Zinc Oxide ointment 0 gm TP QSHIFT PRN 01/01/21 01/01/21 History 28gm tube] bisacodyL [Dulcolax 10mg Supp] 10 mg RC DAILYP PRN 01/01/21 01/01/21 History Allergies Allergy/AdvReac Type Severity Reaction Status Date / Time No Known Allergies Allergy Verified 12/27/20 09:25 Exam Vital signs and Labs for Last 24 Hours: Temp Pulse Resp BP Pulse Ox 97.9 F 67 14 112/55 L 100 01/01/21 04:00 01/01/21 04:00 01/01/21 04:00 01/01/21 04:00 01/01/21 04:00 Laboratory Results - last 24 hr 12/31/20 17:38: WBC 4.6 L, RBC 2.67 L, H
--- NOTE | 2021-01-01 11:22 | P.CONPHA_ITS ---
[facility] VTE Monitoring - Patient Demographics Admission date: 01/01/21 Report Date: 01/01/21 Time: 11:22 Allergies/Adverse Reactions: Patient Allergies No Known Allergies Allergy (Verified 12/27/20 09:25) Height: 1.83 m Weight: 74.899 kg Patient Problems: Current Active Problems CKD (chronic kidney disease) stage 4, GFR 15-29 ml/min (Acute) Anemia (Acute) Hypoglycemia (Acute) Generalized weakness (Acute) - VTE Risk Labs: VTE Related Lab Results Hgb 9.5 g/dL (14.1-18.0) L 01/01/21 05:40 Hct 28.5 % (42.0-52.0) L 01/01/21 05:40 Plt Count 161 K/mm3 (142-424) 01/01/21 05:40 PT 12.2 seconds (9.4-11.8) H 12/31/20 17:38 INR 1.11 (0.9-1.1) H 12/31/20 17:38 APTT 24.4 seconds (23.6-34.0) 12/31/20 17:38 BUN 61 mg/dl (9-20) H 01/01/21 05:40 Creatinine 2.70 mg/dl (0.66-1.25) H 01/01/21 05:40 Estimated Creat Clear 22 mL/min (50-200) 01/01/21 05:40 VTE Risk Level: Moderate Risk - Prophylaxis Types of VTE Prophylaxis: IPCS Knee High Location of Applied Device: Bilateral Lower Extremeties (ICDS ORDERED)
[2021-01-01 13:44] LABS: Glucose,Random 90 mg/dL (74-100)
--- NOTE | 2021-01-01 13:55 | PC.NURSE ---
glucometer read bs as 44, stat lab put in, orange juice given. pt asymptomatic. stat glucose reads 90.
[2021-01-01 17:26] LABS: POC Glucose,Bedside 163 (70-110)
--- NOTE | 2021-01-01 17:51 | PC.NURSE ---
pt has had a good day. pt is now on 2lnc with o2 sat >95%. pt has been turned q2hr, oral given given. pt has also been using the IS with this afternoon pt has been resistive to all care. central line removed per md order. 20G placed in the LAC. pt given a one time dose to morphine, md aware of allergy. pt has the rash on his body from yesterday still, applied topical medication. vss. will cont. to monitor.
[2021-01-01 20:30] LABS: POC Glucose,Bedside 155 (70-110)
[2021-01-02 04:00] VITALS: BP 109/61; PULSE 74; RESP 16; TEMP 36.8; O2SAT 96
[2021-01-02 04:46] VITALS: BMI 22.6
--- NOTE | 2021-01-02 04:50 | PC.NURSE ---
No acute changes. Pt has has slept at intervals. Has not c/o any discomfort this shift. Has ambulated to BR with assist x1. Medication administered per jan. VSS. Call light within reach. Will continue to monitor.
[2021-01-02 05:42] LABS: POC Glucose,Bedside 115 (70-110)
[2021-01-02 08:00] VITALS: BP 126/46; PULSE 68; RESP 17; TEMP 36.6; O2SAT 99
--- NOTE | 2021-01-02 09:26 | P.PN_ITS ---
Internal Medicine - PN: Subj *Date: 01/03/21 *Time: 07:29 Interval history: pt doing better - sitting up-vital signs stable Exam Vital signs and Labs for Last 24 Hours: Temp Pulse Resp BP Pulse Ox 98.3 F 74 16 109/61 L 96 01/02/21 04:00 01/02/21 04:00 01/02/21 04:00 01/02/21 04:00 01/02/21 04:00 Laboratory Results - last 24 hr 01/01/21 13:28: Random Glucose 90 01/01/21 17:19: POC Glucose 163 H 01/01/21 20:16: POC Glucose 155 H 01/02/21 05:22: POC Glucose 115 H I & O for Last 24 hours: Intake & Output 12/30/20 12/31/20 01/01/21 01/02/21 11:59 11:59 11:59 11:59 Intake Total 240 / 240 720 / 720 Output Total 600 / 600 750 / 750 Balance -360 / -360 -30 / -30 Weight 165 lb 2 oz 167 lb 6 oz - Constitutional no acute distress - *Routine HEENT Exam Head: Present: normocephalic Eye: Present: EOMI, PERRL ENT: Present: mucous membranes dry - *Routine Neck Exam Present: supple - *Routine Respiratory Exam Present: CTA bilaterally - *Routine Cardiovascular Exam Present: RRR - *Routine Abdominal Exam Present: soft - *Routine Extremities Exam Present: full ROM - *Routine Skin Exam Present: intact - *Routine Neurological Exam Present: alert, CN II-XII intact - Routine Psychiatric Exam Present: normal affect Assessment and Plan (1) Anemia Status: Acute Qualifiers: Anemia type: due to chronic kidney disease Chronic kidney disease stage: stage 3 (moderate) Chronic kidney disease stage 3 subtype: stage 3b (GFR 30- 44) Qualified Code(s): N18.32 - Chronic kidney disease, stage 3b; D63.1 - Anemia in chronic kidney disease Category: Medical Code(s): D64.9 - Anemia, unspecified (2) CKD (chronic kidney disease) stage 4, GFR 15-29 ml/min Status: Acute Category: Medical Code(s): N18.4 - Chronic kidney disease, stage 4 (severe) (3) Generalized weakness Status: Acute Category: Medical Code(s): R53.1 - Weakness (4) Diabetes mellitus type 2 in nonobese Status: Acute Category: Medical Code(s): E11.9 - Type 2 diabetes mellitus without complications (5) CAD (coronary artery disease) Status: Chronic Qualifiers: Coronary Disease-Associated Artery/Lesion type: [place] artery [place] vs. transplanted heart: [place] heart Associated angina: without angina Qualified Code(s): I25.10 - Atherosclerotic heart disease of [place] coronary artery without angina pectoris Category: Medical Code(s): I25.10 - Atherosclerotic heart disease of [place] coronary artery without angina pectoris
[2021-01-02 11:17] LABS: Basophils # 0.1 K/mm3 (0-0.2); Basophils % 0.7 % (0.1-2.0); Eosinophils # 0.6 K/mm3 (0.0-0.4); Eosinophils % 7.7 % (0.1-12.0); Hematocrit 32.3 % (42.0-52.0); Hemoglobin 10.6 g/dL (14.1-18.0); Lymphocytes # 1.1 K/mm3 (0.7-4.5); Lymphocytes % 14.8 % (10-50); Mean Corpuscular HGB Conc 32.7 g/dL (31.8-35.4); Mean Corpuscular Hemoglobin 32.9 pg (27.0-31.2); Mean Corpuscular Volume 100.8 fl (80-94); Mean Platelet Volume 14.9 fl (7.4-10.4); Monocytes # 0.4 K/mm3 (0.1-1.0); Monocytes % 5.1 % (1.7-9.3); Neutrophils # 5.1 K/mm3 (1.8-7.8); Neutrophils % 71.6 % (37.0-80.0); Platelet Count 169 K/mm3 (142-424); Red Blood Count 3.21 M/mm3 (4.60-6.20); Red Cell Distribution Width 17.4 % (11.5-17.5); White Blood Count 7.1 K/mm3 (4.8-10.8)
[2021-01-02 11:20] LABS: Chloride 108 mmol/L (98-107)
[2021-01-02 11:21] LABS: Potassium 5.2 mmoL/L (3.5-5.1); Sodium 138 mmol/L (136-145)
[2021-01-02 11:23] LABS: Blood Urea Nitrogen 46 mg/dl (9-20); Creatinine Clearance Estimated 27 mL/min (50-200); Estimated Glomerular Filt Rate 29 ml/min (>60); GFR (African American) 35 ML/MIN (>60)
[2021-01-02 11:24] LABS: Anion Gap 10.2 mEq/L (5-15); Calcium 9.2 mg/dl (8.4-10.2); Carbon Dioxide 25 mmol/L (22.0-30.0); Glucose 139 mg/dl (74-100)
[2021-01-02 15:37] VITALS: BP 122/52; PULSE 69; RESP 18; TEMP 36.7; O2SAT 100
--- NOTE | 2021-01-02 17:55 | PC.NURSE ---
no acute changes to report. pt hopeful to go home tomorrow. vss. will cont. to monitor.
[2021-01-02 20:00] VITALS: BP 135/47; PULSE 73; RESP 15; TEMP 36.4; O2SAT 97
[2021-01-02 21:05] LABS: POC Glucose,Bedside 276 (70-110)
[2021-01-03 03:26] LABS: Microscopic, Urine URINE MICROSCOPIC (MICROSCOPIC)
[2021-01-03 04:00] VITALS: BP 101/55; PULSE 71; RESP 15; TEMP 36.7; O2SAT 96
[2021-01-03 04:26] LABS: Appearance,Urine CLEAR (Clear); Bilirubin,Urine Negative (Negative); Blood, Urine Negative (Negative); Color,Urine YELLOW (Yellow); Glucose,Urine (UA) TRACE (Negative); Ketones,Urine Negative (Negative); Leukocyte Esterase,Urine Negative (Negative); Nitrate,Urine Negative (Negative); PH,Urine 5.5 (5.0-8.5); Protein,Urine Negative (Negative); Urobilinogen,Urine 0.2 EU/dl (0.2)
[2021-01-03 04:42] LABS: Amorphous Sediment,Urine Trace /lpf
--- NOTE | 2021-01-03 04:47 | PC.NURSE ---
Pt has rested well. No complaints stated. Has ambulated in room and to BR and has tolerated well. Medications administered per jan. Protonix gtt infusing at 10 ml/hr. NS infusing @ 50 ml/hr. VSS. Pt remains on RA. Random glucose elevated last night. PO diabetic medication on hold per MD. Will recheck FSBS this AM. No other concerns. Call light within reach. Will continue to monitor.
[2021-01-03 06:00] VITALS: BMI 23.1
[2021-01-03 06:20] LABS: POC Glucose,Bedside 141 (70-110)
[2021-01-03 08:00] VITALS: BP 109/51; PULSE 74; RESP 18; TEMP 36.7; O2SAT 99
[2021-01-03 08:47] LABS: Basophils % 0.4 % (0.1-2.0); Eosinophils # 0.4 K/mm3 (0.0-0.4); Eosinophils % 7.4 % (0.1-12.0); Hematocrit 29.3 % (42.0-52.0); Lymphocytes # 0.8 K/mm3 (0.7-4.5); Lymphocytes % 16.9 % (10-50); Mean Corpuscular HGB Conc 32.2 g/dL (31.8-35.4); Mean Corpuscular Hemoglobin 31.6 pg (27.0-31.2); Mean Corpuscular Volume 98.1 fl (80-94); Mean Platelet Volume 7.6 fl (7.4-10.4); Monocytes # 0.3 K/mm3 (0.1-1.0); Monocytes % 5.2 % (1.7-9.3); Neutrophils # 3.5 K/mm3 (1.8-7.8); Neutrophils % 70.1 % (37.0-80.0); Platelet Count 142 K/mm3 (142-424); Red Blood Count 2.99 M/mm3 (4.60-6.20); Red Cell Distribution Width 14.9 % (11.5-17.5)
[2021-01-03 08:48] LABS: Hemoglobin 9.4 g/dL (14.1-18.0)
[2021-01-03 08:50] LABS: Chloride 110 mmol/L (98-107); Potassium 4.7 mmoL/L (3.5-5.1); Sodium 138 mmol/L (136-145)
--- NOTE | 2021-01-03 08:52 | HMH.DCSUM ---
General - General Admission date:: 12/31/20 Discharge date: 01/03/21 HPI HPI: this pt was sent from [facility] for weakness with renal failure and anemia-pt was seen in the ed - is a 85-year-old male presented to the emergency department with confusion. Patient was sent over from nursing facility. Apparently he had some low and high blood sugars today that have been inconsistent. The patient was recently admitted for NSTEMI and had a cardiac catheterization. He does have a longstanding history of chronic anemia, however he is still on antiplatelets. Patient denies any symptoms at this time. However on my examination he does appear slightly confused to answering some questions. He denies any chest pain or shortness of breath. Abdominal pain or vomiting. No diarrhea. No headache or change in vision. No focal weakness. No fevers or chills. Hospital Course Hospital Course: Laboratory Tests 12/31/20 12/31/20 12/31/20 17:38 17:38 17:38 WBC 4.6 L RBC 2.67 L Hgb 8.8 L Hct 26.5 L MCV 99.1 H MCH 33.0 H MCHC 33.3 RDW 15.1 Plt Count 190 MPV 7.8 Neut % (Auto) 75.7 Lymph % (Auto) 12.4 [place] % (Auto) 6.6 Eos % (Auto) 4.7 Baso % (Auto) 0.6 Neut # (Auto) 3.5 Lymph # (Auto) 0.6 L [place] # (Auto) 0.3 Eos # (Auto) 0.2 Baso # (Auto) 0.0 PT 12.2 H INR 1.11 H APTT Sodium 140 Potassium 4.8 Chloride 108 H Carbon Dioxide 24 Anion Gap 12.8 BUN 64 H Creatinine 3.20 H Estimated Creat Clear 20 Estimated GFR 19 L* Est GFR ( Amer) 23 L Glucose 55 L POC Glucose Random Glucose Calcium 8.8 Total Bilirubin 0.3 AST 25 ALT 13 Alkaline Phosphatase 79 Total Protein 6.1 L Albumin 3.7 Globulin 2.4 Albumin/Globulin Ratio 1.5 Urine Color Urine Appearance Urine pH Ur Specific [place] Urine Protein Urine Glucose (UA) Urine Ketones Urine Blood Urine Nitrate Urine Bilirubin Urine Urobilinogen Ur Leukocyte Esterase Amorphous Sediment Chlamy pneumoniae PCR Adenovirus (PCR) B. pertussis DNA (PCR) Coronavirus OC43 (PCR) Coronavirus HKU1 (PCR) Coronavirus 229E (PCR) SARS-CoV-2 (PCR) Coronavirus NL63 (PCR) Human Metapneumovir PCR Influenza A (H1) PCR Influ A (H1N1/) PCR Influenza A (H3) PCR Influenza Type A (PCR) Influenza Type B (PCR) M. pneumoniae (PCR) Parainfluenza 1 (PCR) Parainfluenza 2 (PCR) Parainfluenza 3 (PCR) Parainfluenza 4 (PCR) RSV (PCR) Entero/Rhino (PCR) SARS-CoV-2 IgG Ab (Rapid) SARS-CoV-2 IgM Ab (Rapid) Blood Type Antibody Screen Crossmatch (AHG) 12/31/20 12/31/20 12/31/20 17:38 17:38 17:38 WBC RBC Hgb Hct MCV MCH MCHC RDW Plt Count MPV Neut % (Auto) Lymph % (Auto) [place] % (Auto) Eos % (Auto) Baso % (Auto) Neut # (Auto) Lymph # (Auto) [place] # (Auto) Eos # (Auto) Baso # (Auto) PT INR APTT 24.4 Sodium Potassium Chloride Carbon Dioxide Anion Gap BUN Creatinine Estimated Creat Clear Estimated GFR Est GFR ( Amer) Glucose POC Glucose Random Glucose Calcium Total Bilirubin AST ALT Alkaline Phosphatase Total Protein Albumin Globulin Albumin/Globulin Ratio Urine Color Urine Appearance Urine pH Ur Specific [place] Urine Protein Urine Glucose (UA) Urine Ketones Urine Blood Urine Nitrate Urine Bilirubin Urine Urobilinogen Ur Leukocyte Esterase Amorphous Sediment Chlamy pneumoniae PCR Adenovirus (PCR) B. pertussis DNA (PCR) Coronavirus OC43 (PCR) Coronavirus HKU1 (PCR) Coronavirus 229E (PCR) SARS-CoV-2 (PCR) Coronavirus NL63 (PCR) Human Metapneumovir PCR Influenza A (H1) PCR Influ A (H1N1/) PCR Influe
[2021-01-03 08:53] LABS: Anion Gap 8.7 mEq/L (5-15); Blood Urea Nitrogen 42 mg/dl (9-20); Carbon Dioxide 24 mmol/L (22.0-30.0); Creatinine Clearance Estimated 31 mL/min (50-200); Estimated Glomerular Filt Rate 32 ml/min (>60); GFR (African American) 39 ML/MIN (>60)
[2021-01-03 08:54] LABS: Calcium 8.8 mg/dl (8.4-10.2); Glucose 194 mg/dl (74-100)
--- NOTE | 2021-01-03 09:50 | SW/DCPLANNER ---
This patient currently resides at [facility] in [place] under SNF level of care. I have informed Dona Maciel with [facility] that pending negative COVID swab today this patient will return. Updated patient information will be faxed to Dona Maciel along with COVID results. I have spoke with patients sister whom stated that family can not transport patient today due to . I have spoke with nursing (Ro) whom will call for ambulance transportation at time of discharge. Patient will discharge home this afternoon.
--- NOTE | 2021-01-03 10:34 | PC.NURSE ---
Discharge teaching provided. Questions encouraged and answered. Pt. v/u. Discharge paperwork signed by pt and this nurse.
[2021-01-10 11:43] LABS: POC Glucose,Bedside < 40 (70-110)
[2021-01-10 11:43] LABS: POC Glucose,Bedside 44 (70-110)
== END 2021-01-03 13:04 | DRG 280 ==
LOC: ER 20:55 → 2ND 01-01 11:50
PROVIDERS: Nurse Practitioner Family; Admitting Provider Emergency Medicine; Emergency Provider Emergency Medicine; PCP Family Medicine; Visit Provider Family Medicine
DX: I13.0 Hypertensive heart and chronic kidney disease with heart failure and stage 1 through stage 4 chronic kidney disease, or unspecified chronic kidney disease (principal); I21.4 Non-ST elevation (NSTEMI) myocardial infarction; I50.23 Acute on chronic systolic (congestive) heart failure; I49.01 Ventricular fibrillation; N18.4 Chronic kidney disease, stage 4 (severe); D63.1 Anemia in chronic kidney disease; Z87.891 Personal history of nicotine dependence; I25.5 Ischemic cardiomyopathy; Z79.82 Long term (current) use of aspirin; Z79.84 Long term (current) use of oral hypoglycemic drugs; Z79.899 Other long term (current) drug therapy; I25.10 Atherosclerotic heart disease of native coronary artery without angina pectoris; Z79.02 Long term (current) use of antithrombotics/antiplatelets
CPT/HCPCS: 36415; 70450; 71045; 80048; 80053; 81001; 82947; 82962; 85025; 85610; 85730; 86328; 86850; 87581; 87633; 87798; 93005; 96375; 99284; P9016; U0003

== ENCOUNTER 2021-07-07 19:54 | Emergency (ER) | payer MEDICARE, MEDICAID, SELFPAY ==
[2021-07-07 20:29] VITALS: BP 116/73; PULSE 72; RESP 17; TEMP 36.5; O2SAT 98; BMI 21.2
--- NOTE | 2021-07-07 20:33 | ECG_ITS ---
APPROVED REPORT Exam: Resting ECG HR:79 bpm ECG Measurements Heart Rate 79 AXES QRSd 98 QRS -20 QT 360 T 83 QTc 412 Conclusion Accelerated Junctional rhythm Nonspecific ST and T wave abnormality Abnormal ECG Electronically signed by : Isaias Conner MD 07/08/2021 16:55:55
--- NOTE | 2021-07-07 20:36 | XR_ITS ---
PROCEDURE INFORMATION: Exam: XR Left Ankle Exam date and time: 07/07/2021 8:36 PM Age: 86 years old Clinical indication: Injury or trauma; Fall; Blunt trauma; Ankle; Left TECHNIQUE: Imaging protocol: XR Left ankle. Views: 3 or more views. COMPARISON: No relevant prior studies available. FINDINGS: Bones/joints: No acute or healing fracture or malalignment. Evidence of old injury involving the fibular tip and distal fibula centered at the metaphysis. No unusual lytic or sclerotic lesions of bone. Large plantar and posterior calcaneal enthesophytes. Ankle mortise is intact. Soft tissues: Normal. Other findings: No other significant abnormalities. IMPRESSION: No acute or healing fracture or malalignment.
--- NOTE | 2021-07-07 20:36 | CT_ITS ---
PROCEDURE INFORMATION: Exam: CT Head Without Contrast Exam date and time: 07/07/2021 8:36 PM Age: 86 years old Clinical indication: Injury or trauma; Fall; Blunt trauma (contusions or hematomas); Consciousness not specified TECHNIQUE: Imaging protocol: Computed tomography of the head without contrast. Radiation optimization: All CT scans at this facility use at least one of these dose optimization techniques: automated exposure control; mA and/or kV adjustment per patient size (includes targeted exams where dose is matched to clinical indication); or iterative reconstruction. COMPARISON: CT HEAD/BRAIN WO CON 12/31/2020 6:17 PM FINDINGS: Brain: Moderate atrophy. No intracranial hemorrhage. No mass. Few scattered foci of decreased attenuation within periventricular/subcortical white matter. No edema. Cerebral ventricles: No hydrocephalus. Paranasal sinuses: Scattered minimal mucosal thickening. Mastoid air cells: No significant effusion. Orbital cavity: Unremarkable as visualized. Vasculature: Mild atherosclerotic disease of intracranial arteries. Bones/joints: No acute fracture. Soft tissues: Unremarkable. IMPRESSION: 1. No intracranial hemorrhage. 2. Probable chronic microvascular ischemic changes.
--- NOTE | 2021-07-07 20:36 | XR_ITS ---
PROCEDURE INFORMATION: Exam: XR Left Hip Exam date and time: 07/07/2021 8:36 PM Age: 86 years old Clinical indication: Injury or trauma; Fall; Blunt trauma (contusions or hematomas); Left; Hip TECHNIQUE: Imaging protocol: XR Left hip. Views: 2 or 3 views hip with pelvis when performed. COMPARISON: [id number] CT abdomen pelvis wo con 02/03/2019 11:46 AM FINDINGS: Tubes, catheters and devices: Giraldo catheter in place. Bones/joints: Acute fracture centered at the left femoral neck. No malalignment at the left hip joint. No other acute or healing fracture or malalignment. Moderate hip joint degenerative changes bilaterally. No unusual lytic or sclerotic lesions of bone. Soft tissues: Soft tissues are unremarkable. IMPRESSION: Acute fracture centered at the left femoral neck.
--- NOTE | 2021-07-07 20:36 | CT_ITS ---
PROCEDURE INFORMATION: Exam: CT Cervical Spine Without Contrast Exam date and time: 07/07/2021 8:36 PM Age: 86 years old Clinical indication: Injury or trauma; Fall; Blunt trauma TECHNIQUE: Imaging protocol: Computed tomography images of the cervical spine without contrast. Radiation optimization: All CT scans at this facility use at least one of these dose optimization techniques: automated exposure control; mA and/or kV adjustment per patient size (includes targeted exams where dose is matched to clinical indication); or iterative reconstruction. COMPARISON: No relevant prior studies available. FINDINGS: Bones/joints: No acute fracture. Normal alignment. Anterior and posterior osteophytes. Facet osteoarthrosis within cervical spine. Discs/Spinal canal/Neural foramina: Partial ossification of posterior longitudinal ligament. Moderate to severe degenerative disc disease within mid and lower cervical spine. Mild indentation thecal sac/cord mid cervical spine. Mild indentation thecal sac/cord lower cervical spine. Neuroforaminal narrowing with mid cervical spine. Sinuses: Mild focal mucosal thickening of visualized RIGHT maxillary sinus. Lungs: Unremarkable as visualized. Vasculature: Atherosclerotic disease of carotid arteries. Soft tissues: Unremarkable. IMPRESSION: No fracture.
--- NOTE | 2021-07-07 20:36 | XR_ITS ---
PROCEDURE INFORMATION: Exam: XR Left Tibia and Fibula Exam date and time: 07/07/2021 8:36 PM Age: 86 years old Clinical indication: Injury or trauma; Fall; Blunt trauma; Lower leg; Left TECHNIQUE: Imaging protocol: XR Left tibia and fibula. Views: 2 views. COMPARISON: No relevant prior studies available. FINDINGS: Extensor mechanism enthesopathy. No acute or healing fracture or malalignment. Old healed fracture involving the distal fibula. No significant joint effusion. No unusual lytic or sclerotic lesions of bone. Prominent plantar calcaneal enthesophyte. IMPRESSION: No acute or healing fracture or malalignment.
--- NOTE | 2021-07-07 20:36 | XR_ITS ---
PROCEDURE INFORMATION: Exam: XR Chest Exam date and time: 07/07/2021 8:36 PM Age: 86 years old Clinical indication: Injury or trauma; Fall; Blunt trauma (contusions or hematomas) TECHNIQUE: Imaging protocol: XR of the chest. Views: 1 view. COMPARISON: CR XR CHEST PORTABLE 12/31/2020 6:21 PM FINDINGS: Lungs: Unremarkable. No consolidation. Pleural spaces: Unremarkable. No pleural effusion. No pneumothorax. Heart/Mediastinum: Unremarkable. No cardiomegaly. Left-sided AICD/pacer with intact wires. Bones/joints: Unremarkable. IMPRESSION: No acute findings.
[2021-07-07 20:52] LABS: Coronavirus 19, PCR Not Detected (NotDetected); Influenza A, PCR Not Detected (NotDetected); Influenza B, PCR Not Detected (NotDetected); Microscopic, Urine URINE MICROSCOPIC (MICROSCOPIC)
[2021-07-07 20:57] LABS: Appearance,Urine SL CLOUDY (Clear); Bilirubin,Urine Negative (Negative); Blood, Urine 3+ (Negative); Color,Urine YELLOW (Yellow); Glucose,Urine (UA) Negative (Negative); Ketones,Urine Negative (Negative); Leukocyte Esterase,Urine 3+ (Negative); Nitrate,Urine Negative (Negative); PH,Urine 5.5 (5.0-8.5); Protein,Urine Negative (Negative); Urobilinogen,Urine 0.2 EU/dl (0.2)
[2021-07-07 21:32] LABS: Chloride 107 mmol/L (98-107); Potassium 3.3 mmoL/L (3.5-5.1); Sodium 140 mmol/L (136-145)
[2021-07-07 21:33] LABS: Basophils % 0.5 % (0.1-2.0); Eosinophils # 0.1 K/mm3 (0.0-0.4); Eosinophils % 1.8 % (0.1-12.0); Lymphocytes # 0.4 K/mm3 (0.7-4.5); Mean Corpuscular HGB Conc 34.8 g/dL (31.8-35.4); Mean Corpuscular Hemoglobin 33.3 pg (27.0-31.2); Mean Corpuscular Volume 95.7 fl (80-94); Monocytes # 0.4 K/mm3 (0.1-1.0); Monocytes % 4.8 % (1.7-9.3); Neutrophils % 87.8 % (37.0-80.0); Platelet Count 242 K/mm3 (142-424); Red Blood Count 1.97 M/mm3 (4.60-6.20); Red Cell Distribution Width 14.4 % (11.5-17.5)
[2021-07-07 21:35] LABS: Alanine Aminotransferase 23 U/L (12-78); Albumin Level 3.5 g/dl (3.5-5.0); Albumin/Globulin Ratio 1.5 (1.1-1.8); Alkaline Phosphatase 78 U/L (38-126); Anion Gap 11.3 mEq/L (5-15); Aspartate Amino Transferase 43 U/L (17-59); Bilirubin,Total 0.7 mg/dl (0.2-1.3); Blood Urea Nitrogen 63 mg/dl (9-20); Carbon Dioxide 25 mmol/L (22.0-30.0); Creatinine Clearance Estimated 25 mL/min (50-200); Estimated Glomerular Filt Rate 27 ml/min (>60); GFR (African American) 33 ML/MIN (>60); Globulin 2.3 g/dL (1.3-3.2); Total Protein,Serum 5.8 g/dl (6.3-8.2)
[2021-07-07 21:36] LABS: Calcium 8.3 mg/dl (8.4-10.2); Creatine Kinase 844 U/L (55-170); Glucose 177 mg/dl (74-100)
[2021-07-07 21:38] LABS: Bacteria,Urine 1+ /lpf; RBC,Urine 20-50 #/hpf (0-3); WBC,Urine 20-50 #/hpf (0-3)
[2021-07-07 21:41] LABS: C-Reactive Protein 84.9 mg/L (0-4)
[2021-07-07 21:42] LABS: Hematocrit 18.9 % (42.0-52.0); Hemoglobin 6.6 g/dL (14.1-18.0)
--- NOTE | 2021-07-07 21:42 | PC.NURSE ---
patient h/h critical low, noted and information given to md. no new orders at this moment. he will review other labs first.
[2021-07-07 21:44] LABS: MANUAL DIFFERENTIAL MANUAL DIFFERENTIAL (MANUAL DIFF)
[2021-07-07 21:47] LABS: CKMB Relative Index 0.8 U/L (0-4.0); Creatine Kinase MB 6.9 ng/ml (0.0-2.03)
[2021-07-07 21:48] LABS: NT Pro Brain Natriuretic Pep. 8550 pg/mL (0-450)
[2021-07-07 21:51] LABS: Troponin I 0.05 ng/ml (0.00-0.034)
[2021-07-07 22:05] VITALS: BP 115/46; PULSE 63; O2SAT 100
[2021-07-07 22:39] LABS: Eosinophils % 1 % (0-3); Lymphocytes % 4 % (10-50); Neutrophils % 95 % (42-76); Total Cells Counted 100
[2021-07-07 22:40] LABS: Anisocytosis 1+; Platelet Estimate Normal
[2021-07-07 22:47] LABS: Erythrocyte Sedimentation Rate > 140 mm/hr (0-20)
[2021-07-07 22:52] VITALS: BP 101/42; PULSE 74; O2SAT 100
[2021-07-07 23:00] VITALS: BP 107/39; PULSE 70; O2SAT 100
[2021-07-07 23:04] VITALS: BP 101/45; PULSE 73; O2SAT 99
--- NOTE | 2021-07-07 23:07 | PC.NURSE ---
waiting on md to place orders for admit.
--- NOTE | 2021-07-07 23:29 | HMH.EDFALL ---
ED Disposition Clinical Impression: CKD (chronic kidney disease) stage 4, GFR 15-29 ml/min, Diabetes mellitus type 2 in nonobese, Elevated brain natriuretic peptide (BNP) level, Cognitive dysfunction Hip fracture Qualifiers: Encounter type: initial encounter Fracture type: closed Laterality: left Qualified Code(s): S72.002A - Fracture of unspecified part of neck of left femur, initial encounter for closed fracture Rhabdomyolysis Qualifiers: Rhabdomyolysis type: non-traumatic Qualified Code(s): M62.82 - Rhabdomyolysis Anemia Qualifiers: Anemia type: unspecified type Qualified Code(s): D64.9 - Anemia, unspecified UTI (urinary tract infection) Qualifiers: Urinary tract infection type: site unspecified Hematuria presence: without hematuria Qualified Code(s): N39.0 - Urinary tract infection, site not specified CAD (coronary artery disease) Qualifiers: Coronary Disease-Associated Artery/Lesion type: [place] artery [place] vs. transplanted heart: [place] heart Associated angina: without angina Qualified Code(s): I25.10 - Atherosclerotic heart disease of [place] coronary artery without angina pectoris Fall Qualifiers: Encounter type: initial encounter Qualified Code(s): W19.XXXA - Unspecified fall, initial encounter Disposition: Xfer Short-Term Hosp Condition on Discharge: Fair Referrals: Kiran Crenshaw MD [Primary Care Provider] - Forms: Transfer Record - ED - Critical Care Critical Care Time: Yes Attestation: On 07/07/21, the high probability of a clinically significant, sudden or life threatening deterioration of the following system(s) required my full and direct attention, intervention and personal management. The time I documented below is in addition to time spent performing reported procedures but includes the following listed in this critical care notation. Total Critical Care Time: 30 Vital system(s) involved:: Metabolic Failure My critical care processes included: Assessment & monitoring of V/S, Initial and Re-exams, Data Review/Interpretation, Coordinating Care, Medication Orders and management, Documentation Medical Decision Making - Medical Records Medical records reviewed: Yes: I reviewed the patient's medical records. - Shant Inquiry Pt receiving controlled substance: No Vital Signs: 07/07/21 20:29 07/07/21 22:05 07/07/21 22:52 Temperature 97.7 F Temperature Source Rectal Pulse Rate 63 74 Pulse Rate [Right Brachial] 72 Respiratory Rate 17 Blood Pressure 115/46 L 101/42 L Blood Pressure [Right Arm] 116/73 Blood Pressure Mean [Right Arm] 87 Blood Pressure Source [Right Arm] Automatic Cuff Blood Pressure Position [Right Arm] Sitting 02 Sat by Pulse Oximetry 98 100 100 Oxygen Delivery Method Room Air 07/07/21 23:00 07/07/21 23:04 07/07/21 23:35 Temperature Temperature Source Pulse Rate 70 73 72 Pulse Rate [Right Brachial] Respiratory Rate Blood Pressure 107/39 L 101/45 L 111/45 L Blood Pressure [Right Arm] Blood Pressure Mean [Right Arm] Blood Pressure Source [Right Arm] Blood Pressure Position [Right Arm] 02 Sat by Pulse Oximetry 100 99 99 Oxygen Delivery Method - Lab Data Lab results reviewed: Yes: I reviewed the patient's lab results. Lab Results 07/07/21 20:50: Urine Color Yellow, Urine Appearance Sl cloudy, Urine pH 5.5, Ur Specific [place] 1.010, Urine Protein Negative, Urine Glucose (UA) Negative, Urine Ketones Negative, Urine Blood 3+, Urine Nitrate Negative, Urine Bilirubin Negative, Urine Urobilinogen 0.2, Ur Leukocyte Esterase 3+ A, Urine RBC 20-50, Urine WBC 20-50, Ur Squamous Epith Cells 3-5, Urine Bacteria 1+ 07/07/21 20:50: SARS-CoV-2 (PCR) Not detected, Influenza A Untype (PCR) Not detected, Influenza Type B (PCR) Not detected 07/07/21 21:00: WBC 8.0, RBC 1.97 L*, Hgb 6.6 L*, Hct 18.9 L*, MCV 95.7 H, MCH 33.3 H, MCHC 34.8, RDW 14.4, Plt Count 242, MPV 8.0, Neut % (Auto) 87.8 H, Lymph % (Auto) 5.0 L, [place] % (Auto) 4.8, Eos % (A
[2021-07-07 23:35] VITALS: BP 111/45; PULSE 72; O2SAT 99
[2021-07-07 23:59] LABS: Troponin I 0.05 ng/ml (0.00-0.034)
--- NOTE | 2021-07-08 00:10 | PC.NURSE ---
call placed to [facility]. waiting on dr mon to take call.
[2021-07-08 01:42] VITALS: BP 117/49; PULSE 80; RESP 17; TEMP 36.8; O2SAT 100
== END 2021-07-08 01:48 | disposition short-term general hospital (02) ==
PROVIDERS: Emergency Provider Emergency Medicine; PCP Family Medicine
DX: S72.002A Fracture of unspecified part of neck of left femur, initial encounter for closed fracture (principal); W01.0XXA Fall on same level from slipping, tripping and stumbling without subsequent striking against object, initial encounter; Y92.019 Unspecified place in single-family (private) house as the place of occurrence of the external cause; M62.82 Rhabdomyolysis; D64.9 Anemia, unspecified; N30.00 Acute cystitis without hematuria; I25.10 Atherosclerotic heart disease of native coronary artery without angina pectoris; I25.2 Old myocardial infarction; I10 Essential (primary) hypertension; E78.5 Hyperlipidemia, unspecified; E11.65 Type 2 diabetes mellitus with hyperglycemia; Z95.0 Presence of cardiac pacemaker; F17.210 Nicotine dependence, cigarettes, uncomplicated; Z79.899 Other long term (current) drug therapy; Z11.52 Encounter for screening for COVID-19
CPT/HCPCS: 70450; 71045; 72125; 73502; 73590; 73610; 80053; 81001; 82550; 82553; 83880; 84484; 85007; 85025; 85651; 86140; 87086; 87088; 87186; 93005; 96365; 96366; 96375; 99284; J2405; U0003